=== PATIENT | male | born 1940 | race Caucasian/White ===

== ENCOUNTER 2018-04-17 14:19 | Outpatient (CLI) | payer MEDICARE, OTHER ==
--- NOTE | 2018-04-17 15:10 | XRAY Report ---
Reason: PNEUMONIA Procedure Date: 04/17/2018 Accession Number: [id number] / [id number] Procedure: XR - Chest 2 View X-Ray CPT Code: 94193 FULL RESULT: EXAM: CHEST RADIOGRAPHY EXAM DATE: 04/17/2018 02:54 PM. CLINICAL HISTORY: Pneumonia. COMPARISON: None. TECHNIQUE: 2 views. FINDINGS: Lungs/Pleura: Nonspecific subsegmental opacity in the posterior left lung base. No effusion or extraventilatory air. Remaining lungs are clear. Mediastinum: Heart and mediastinal contours are unremarkable. Other: None. IMPRESSION: Subsegmental left basilar opacity favors atelectasis. RADIA
== END 2018-04-17 14:20 | disposition home or self-care (01) ==
LOC: DI 14:19
PROVIDERS: ATTEND Specialist
DX: J18.9 Pneumonia, unspecified organism (principal)
CPT/HCPCS: 71046

== ENCOUNTER 2018-09-12 14:46 | Outpatient (CLI) | payer MEDICARE, OTHER | END 2018-09-12 14:47 | disposition short-term general hospital (02) | LOC: EMS 14:46 | PROVIDERS: ATTEND Surgery | DX: R07.89 Other chest pain (principal) | CPT/HCPCS: A0425; A0427 ==

== ENCOUNTER 2020-06-10 10:29 | Outpatient (CLI) | payer MEDICARE, OTHER ==
[2020-06-10 11:32] VITALS: BP 144/76
--- NOTE | 2020-06-10 11:32 | SLEEP CARE CONSULTATION ---
Information from patient questionnaire entered by Cristine Hess. I have reviewed and concur with the information entered by Cristine Hess. This document represents the service I personally performed and the decisions made by me, Nasreen Barrera ARNP. History of Present Illness Service Date and Time: 06/10/2020 1029 Reason for Visit: New patient, Previously diagnosed sleep apnea (severe - AHI - 53.4), sleep apnea on CPAP therapy (using [place]), Re-establish care (last seen 2006) Chief Complaint: reports: Fatigue, Frequent awakenings at night Date of Onset: 10 years Usual bedtime: 11 pm Time it takes to fall asleep: 20-30 minutes Snores at night: Yes Observed to quit breathing while asleep: Yes Number of times waking at night: 3-4 Reasons for waking at night: reports: Bathroom, Other (unknown reason) Toss, Turn, or Twitch while sleeping: Yes Recalls having dreams: Yes Feels refreshed in the morning: No Morning headache: No Sleepy or fatigued during the day: Yes Ever fallen asleep while driving: No Takes day naps: Yes Dreams during day naps: Yes Prior sleep studies: Yes Year and Where: [address] 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 - Parasomnia Symptoms Ever been unable to move upon waking from sleep: No Walks in sleep: No Talks in sleep: No Ever acted out dreams in sleep: Yes Ever felt weak in the knees when startled or emotional: Yes Bothered by creepy, crawly, restless sensations in legs: Yes Problems with memory or concentration: Yes CPAP Compliance Data - Data Reviewed with Patient Average duration of nightly device use: 6 hr 26 min Compliance rate %: 81 (180 days) Current pressure setting (cmH2O): 8-12 Average residual AHI: 1.6 Compliance data discussion: He gets his supplies from [employer] in [place]. He is getting supplies as needed. He is using an over the nose mask cushion. He last changed the mask 2 weeks ago. He does have a back up mask if needed. Subjective Patient concerns: reports: nasal congestion (usually when taking mask off in the morning), dry mouth, nose, throat (occasionally). denies: aerophagia, mask discomfort, air blowing in eyes, mask leak noise, condensation in mask/hose, epistaxis, other Observed to snore while using device: No Current pressure setting perceived as: comfortable (sometimes feels not enough) On therapy, patient: reports: sleeping better, awakening more refreshed, being more awake and alert during the day, more rested overall. 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 Patient is and lives in [place]. Have you smoked in the past 12 months: No Quit date: 1972 Alcohol use: No Caffeine use: Yes Caffeine amount and frequency: 2-3 cans of soda daily Family History Family history of sleep disordered breathing: No Allergies and Home Medications Drug allergies reviewed: Yes (NKDA) Home medication list reviewed: Yes Allergy and home medication list: Dofetilide Xarelto Lisinopril Aspirin Finasteride Tamsulosin Review of Systems Cardiovascular: reports: irregular heart rate or pulse Respiratory: reports: shortness of breath Urinary: reports: incontinence, frequency, urgency Neurological: reports: gait or balance problems Endocrine: reports: sluggishness, excessive thirst, increased urination, unexplained weakness Musculoskeletal: reports: joint pain, neck pain, back pain Physical Exam Blood Pressure: 144/76 Cuff size: wrist Heart Rate: 59 O2 Saturation: 93 Height: 5 ft 10 in Weight: 249 lb Body Mass Index: 35.7 BMI Classification: Obese Impression and Plan 1. Obstructive Sleep Apnea-Hypopnea Syndrome, severe, with good treatment compliance and good apnea control. On CPAP therapy, the patient has better sleep quality and is more rested overall. He has significant improvement of his apneas and is satisfied with his treatment. He states he uses the machine till about 5 AM and then will go out and sit on his couch and fall asleep for a couple more hours. He is still feeling some daytime tiredness. I reviewed with patient that can be a difference between meeting compliance and optimal use of CPAP. Optimal use of CPAP is use of CPAP with all sleep to obtain maximum benefit of treatment. Patient is encouraged to use CPAP with all sleep, he may go back or stay in bed rather than getting up and sitting on couch in the morning. He voiced understanding. He states sometimes he feels like the pressure is a little low. I will change his pressure to 10-12 cmH2O to help reduce incidences of air hunger. He was advised to let me know if the pressure change is uncomfortable so it can be adjusted. He voiced understanding. Patient's apnea severity and rationale for treatment to reduce apnea, improve sleep quality and reduce cardiovascular and cerebrovascular events was reviewed. I also reviewed the benefit of consistent device use of CPAP for hypertension, and diabetes. * Change auto CPAP pressure to 10-12 cmH2O * Notify me if snoring with mask or feeling that the pressure is too much or too little * Attempt to lose weight * Call this office if any problems using CPAP * Return for follow up in 1 year, or sooner if concerns arise Counseling Topics: Spare mask, Weight loss health impact Visit Type: In Office Time Spent with Patient (minutes): 32 Provider Statement: I spent 100% of the Face to Face Visit with the patient with greater than 50% spent counseling the patient and coordination of care.
== END 2020-06-10 10:30 | disposition home or self-care (01) ==
LOC: SC 10:29
PROVIDERS: ATTEND Nurse Practitioner Family
DX: G47.33 Obstructive sleep apnea (adult) (pediatric) (principal); Z87.891 Personal history of nicotine dependence; E66.9 Obesity, unspecified; Z68.35 Body mass index [BMI] 35.0-35.9, adult
CPT/HCPCS: 99203; G0463; 99212

== ENCOUNTER 2020-08-28 14:05 | Outpatient (CLI) | payer MEDICARE, OTHER | END 2020-08-28 23:59 | disposition home or self-care (01) | LOC: LAB.N 14:05 | PROVIDERS: ATTEND Family Medicine | DX: U07.1 COVID-19 (principal) ==

== ENCOUNTER 2020-08-29 19:56 | Outpatient (CLI) | payer MEDICARE, OTHER | END 2020-08-29 19:57 | disposition short-term general hospital (02) | LOC: EMS 19:56 | DX: R42 Dizziness and giddiness (principal); R53.1 Weakness | CPT/HCPCS: A0425; A0429 ==

== ENCOUNTER 2020-09-03 10:25 | Outpatient (CLI) | payer MEDICARE, OTHER | END 2020-09-03 10:26 | disposition critical access hospital (66) | LOC: EMS 10:25 | DX: R53.1 Weakness (principal); R05 Cough; R06.02 Shortness of breath | CPT/HCPCS: A0425; A0427 ==

== ENCOUNTER 2020-09-03 10:50 | Emergency (ER) | payer MEDICARE, OTHER ==
[2020-09-03] MEDS ORDERED: SODIUM CHLORIDE 0.9% 1,000 ML IV STA (11:04)
--- NOTE | 2020-09-03 11:04 | ED Physician Documentation ---
History of Present Illness - Stated complaint Stated Complaint: SOA/C+ - History obtained from History obtained from: Patient, EMS - Additonal information Additional information: Though states that hisIs emergency department chief complaint of Covid positive and generalized weakness. He states that he has not had any fevers and has had a mild cough and mild shortness of breath but mainly, he is just been generally weak. He states that it has been hard for him to get up out of bed because he has been so weak. He lives at home with his and [id number] and his has been taking care of him. Patient is [id number] just collapsed this morning and so his is also trying to deal with her illness. Patient states he was vaccinated back in April with the [employer] vaccine. He is not sure where he was exposed to Covid. No other complaints at this time. He states he has been drinking lots of water at home. Review of Systems Ten Systems: 10 systems reviewed and negative Constitutional: reports: Reviewed and negative Eyes: reports: Reviewed and negative Ears: reports: Reviewed and negative Nose: reports: Reviewed and negative Throat: reports: Reviewed and negative Cardiac: reports: Reviewed and negative Respiratory: reports: Reviewed and negative GI: reports: Reviewed and negative : reports: Reviewed and negative Skin: reports: Reviewed and negative Musculoskeletal: reports: Reviewed and negative Neurologic: reports: Generalized weakness Psychiatric: reports: Reviewed and negative Endocrine: reports: Reviewed and negative Immunocompromised: reports: Reviewed and negative PD PAST MEDICAL HISTORY - Present Medications Home Medications: Ambulatory Orders Medication Instructions Recorded Confirmed Aspirin EC [Ecotrin] 81 mg PO DAILY PM 09/03/20 09/03/20 Dofetilide [Tikosyn] 125 mcg PO DAILY 09/03/20 09/03/20 Donepezil [Aricept] 5 mg PO DAILY 09/03/20 09/03/20 Finasteride [Proscar] 5 mg PO DAILY 09/03/20 09/03/20 Lisinopril [Zestril] 10 mg PO DAILY 09/03/20 09/03/20 Rivaroxaban [Xarelto] 20 mg PO DAILY 09/03/20 09/03/20 Tamsulosin [Flomax] 0.4 mg PO DAILY 09/03/20 09/03/20 traMADol [Ultram] 50 mg PO TID PRN 09/03/20 09/03/20 - Allergies Allergies/Adverse Reactions: Allergies Allergy/AdvReac Type Severity Reaction Status Date / Time No Known Drug Allergies Allergy Verified 09/03/20 11:07 PD ED PE NORMAL - Vitals Vital signs reviewed: Yes - General General: Alert and oriented X 3, No acute distress - HEENT HEENT: Atraumatic, PERRL, EOMI, Moist mucous membranes - Neck Neck: Supple, no meningeal sign - Cardiac Cardiac: No murmur, Strong equal pulses, Other (tachycardiac rate regular rhythm no murmur) - Respiratory Respiratory: No respiratory distress, Clear bilaterally - Abdomen Abdomen: Soft, Non tender, Non distended - Derm Derm: Normal color, Warm and dry, No rash - Extremities Extremities: No deformity, No edema, No calf tenderness / cord - Neuro Neuro: Alert and oriented X 3, tourist home keeper 2-12 intact, No motor deficit, No sensory deficit, Normal speech - Psych Psych: Normal mood, Normal affect Results - Vitals Vitals: Vital Signs - 24 hr 09/03/20 09/03/20 09/03/20 11:04 13:07 14:37 Temperature 36.9 C 36.5 C 36.6 C Heart Rate 124 H 110 H 105 H Respiratory 28 H 26 H 24 Rate Blood Pressure 116/71 142/86 H 145/78 H O2 Saturation 97 93 98 Oxygen O2 Source Room air - EKG (time done) 1129 Rate: Rate (enter#) (114) Rhythm: Atrial fibrillation [place]: Normal Intervals: RBBB QRS: Normal Ischemia: Normal ST segments, T wave inversion Compare to prior EKG: Old EKG unavailable Computer interpretation: Agree with computer - Labs Labs: Laboratory Tests 09/03/20 09/03/20 09/03/20 11:50 11:50 12:39 WBC 5.0 RBC 5.15 Hgb 15.7 Hct 47.7 MCV 92.6 MCH 30.5 MCHC 32.9 RDW 13.9 Plt Count 84 L MPV 13.2 H Neut # (Auto) 3.5 Lymph # (Auto) 0.9 L [place] # (Auto) 0.6 Eos # (Auto) 0.0 Baso # (Auto) 0.0 Absolute Nucleated RBC 0.00 Nucleated RBC % 0.0 Sodium 135 Potassium 4.1 Chloride 103 Carbon Dioxide 20 L Anion Gap 12.0 BUN 23 H Creatinine 1.3 H Estimated GFR (MDRD) 53 L Glucose 122 H Lactic Acid 1.1 Calcium 8.1 L Total Bilirubin 1.5 H AST 37 ALT 27 Alkaline Phosphatase 41 L Total Protein 6.1 L Albumin 3.6 Globulin 2.5 Albumin/Globulin Ratio 1.4 Lipase 38 - Rads (name of study) cxr Radiology: Final report received, EMP read indepedently, See rad report (neg) PD MEDICAL DECISION MAKING - ED course Complexity details: reviewed results, re-evaluated patient, considered differential, d/w patient ED course: The patient did have a little trouble sitting himself up and holding himself up for the respiratory exam, and was somewhat tachycardic, but otherwise, looked fairly well. He was worked up with labs, chest x-ray, and treated symptomatically with IV fluids. Afebrile here in the emergency department. Despite his age and Covid positive status, patient actually looked fairly good in the emergency department. He was stable throughout his stay and had unremarkable labs and chest x-ray. His EKG showed atrial fibrillation with mild tachycardia. The patient was given a liter of 0.9 normal saline. We had him sit up and then come to a standing position and he was actually able to maintain a standing position with minimal support. He was also able to walk sideways and Transfer himself. I did discuss with the patient that I do not feel he meets criteria for admission and that there is no option to go to a facility even temporarily or to have home health assistance in his Covid positive state. The patient has been experiencing generalized weakness at about the same level for the last 1 to 2 weeks and he will have to continue to ride this out at home. I have consulted social work to give the patient and family some options for assistance with things like bedside commode, which may make his convalescence at home easier. We discussed the usual indications for return. Patient is transferred home by ambulance. Departure - Departure Disposition: 01 Home, Self Care Clinical Impression: Muscle weakness, COVID Condition: Stable Instructions: ED Weakness [facility], COVID-19 [facility] Comments: All of your studies look quite good. Your chest x-ray shows no evidence of pneumonia or a virus-related inflammatory process. Your EKG shows that you are in atrial fibrillation as usual, But does not show any cardiac strain related to the Covid or anything else. You have been hydrated with IV fluids in the emergency department. You are able to stand with minimal assistance and transfer a few steps at a time at very least. At this point in time, unfortunately, you do not meet criteria for admission to the hospital, As this is an illness which will take some time to get over and will not be helped by any intervention within the hospital. Additionally, because you are Covid positive, you are not able to be sent to a facility, even temporarily. Home health is an option for later, but not until your acute illness has passed. At this point in time, you will have to continue to rest at home with assistance as needed. The social work job titles has left a message on your cell phone with some resources for home supplies which you may need, including a bedside commode to help minimize the amount of walking around the house she have to do. Discharge Date/Time: 09/03/20 14:41
[2020-09-03 12:07] LABS: BASOPHILS % (AUTO) 0.2 %; HCT - HEMATOCRIT 47.7 % (42.0-52.0); HGB - HEMOGLOBIN 15.7 g/dL (14.0-18.0); LYMPHOCYTES # (AUTO) 0.9 10^3/uL (1.5-3.5); LYMPHOCYTES % (AUTO) 17.2 %; MEAN CORPUSCULAR HEMOGLOBIN 30.5 pg (27.0-31.0); MEAN CORPUSCULAR HGB CONC 32.9 g/dL (32.0-36.0); MEAN CORPUSCULAR VOLUME 92.6 fL (80.0-94.0); MEAN PLATELET VOLUME 13.2 fL (7.4-11.4); MONOCYTES # (AUTO) 0.6 10^3/uL (0.0-1.0); MONOCYTES % (AUTO) 11.6 %; NEUTROPHILS # (AUTO) 3.5 10^3/uL (1.5-6.6); NEUTROPHILS % (AUTO) 70.8 %; PLT - PLATELET COUNT 84 10^3/uL (130-450); RED BLOOD COUNT 5.15 10^6/uL (4.70-6.10); RED CELL DISTRIBUTION WIDTH 13.9 % (12.0-15.0)
[2020-09-03 12:15] LABS: ALBUMIN 3.6 g/dL (3.2-5.5); ALBUMIN/GLOBULIN RATIO 1.4 (1.0-2.2); BILIRUBIN,TOTAL 1.5 mg/dL (0.2-1.0); CALCIUM 8.1 mg/dL (8.5-10.3); CREATININE 1.3 mg/dL (0.6-1.2); POTASSIUM 4.1 mmol/L (3.5-5.0); TOTAL PROTEIN 6.1 g/dL (6.7-8.2)
--- NOTE | 2020-09-03 13:42 | XRAY Report ---
PROCEDURE: Chest 1 View X-Ray INDICATIONS: chest pain TECHNIQUE: One view of the chest was acquired. COMPARISON: Chest x-ray 2 views, 04/17/2018. FINDINGS: Surgical changes and devices: None. Lungs and pleura: Mild reticular infiltrates in left lung. No pleural effusions or pneumothorax. Mediastinum: Mediastinal contours appear normal. Heart size is normal. Bones and chest wall: No suspicious bony lesions. Overlying soft tissues appear unremarkable. IMPRESSION: Mild reticular infiltrates in left lung. Reviewed by: Shawna Guerrero MD on 09/03/2020 12:41 PM AKDT Approved by: Shawna Guerrero MD on 09/03/2020 12:41 PM AKDT Station ID: [id number]
[2020-09-03 14:39] VITALS: BP 145/78
== END 2020-09-03 14:41 | disposition home or self-care (01) ==
LOC: ED 10:50
DX: U07.1 COVID-19 (principal); M62.81 Muscle weakness (generalized); I48.91 Unspecified atrial fibrillation; R00.0 Tachycardia, unspecified; Z79.01 Long term (current) use of anticoagulants
CPT/HCPCS: 36415; 80053; 83605; 83690; 85025; 93005; 99284

== ENCOUNTER 2020-09-03 14:40 | Outpatient (CLI) | payer MEDICARE, OTHER | END 2020-09-03 14:41 | disposition home or self-care (01) | LOC: EMS 14:40 | PROVIDERS: ATTEND Emergency Medicine | DX: U07.1 COVID-19 (principal); R53.1 Weakness; R41.0 Disorientation, unspecified; Z74.01 Bed confinement status | CPT/HCPCS: A0425; A0428 ==

== ENCOUNTER 2020-09-03 22:01 | Outpatient (CLI) | payer MEDICARE, OTHER | END 2020-09-03 22:02 | disposition EMS.NT | LOC: EMS 22:01 | DX: Z03.89 Encounter for observation for other suspected diseases and conditions ruled out (principal) ==

== ENCOUNTER 2020-09-05 14:31 | Outpatient (CLI) | payer MEDICARE, OTHER | END 2020-09-05 14:32 | disposition critical access hospital (66) | LOC: EMS 14:31 | DX: R53.1 Weakness (principal); R42 Dizziness and giddiness; R06.00 Dyspnea, unspecified | CPT/HCPCS: A0425; A0427 ==

== ENCOUNTER 2020-09-05 14:50 | Inpatient (IN) | payer MEDICARE, OTHER ==
[2020-09-05 15:38] LABS: RED CELL DISTRIBUTION WIDTH 13.5 % (12.0-15.0)
[2020-09-05 15:43] LABS: EOSINOPHILS % (AUTO) 2.1 %; HCT - HEMATOCRIT 44.9 % (42.0-52.0); HGB - HEMOGLOBIN 15.4 g/dL (14.0-18.0); LYMPHOCYTES % (AUTO) 10.3 %; MEAN CORPUSCULAR HEMOGLOBIN 30.6 pg (27.0-31.0); MEAN CORPUSCULAR HGB CONC 34.3 g/dL (32.0-36.0); MEAN CORPUSCULAR VOLUME 89.3 fL (80.0-94.0); MEAN PLATELET VOLUME 13.3 fL (7.4-11.4); MONOCYTES % (AUTO) 8.7 %; NEUTROPHILS % (AUTO) 78.6 %; PLT - PLATELET COUNT 94 10^3/uL (130-450); RED BLOOD COUNT 5.03 10^6/uL (4.70-6.10); WHITE BLOOD COUNT 6.3 x10^3/uL (4.8-10.8)
[2020-09-05 15:44] LABS: VBG BASE EXCESS -2.3 mmol/L (-2 - +2); VBG HCO3 23.1 mmol/L (23-28); VBG OXYGEN SATURATION 48.4 % (60-80); VBG PCO2 41.9 mmHg (41-51); VBG PH 7.359 (7.31-7.41); VBG PO2 25.2 mmHg (25-47); VBG TOTAL CO2 24.4 mmol/L (24-29)
[2020-09-05 15:47] LABS: ABNORMAL LYMPHS % (MANUAL) 0 %
[2020-09-05 15:49] LABS: ALBUMIN 3.6 g/dL (3.2-5.5); ALBUMIN/GLOBULIN RATIO 1.3 (1.0-2.2); BILIRUBIN,TOTAL 1.3 mg/dL (0.2-1.0); CALCIUM 8.4 mg/dL (8.5-10.3); CREATININE 1.4 mg/dL (0.6-1.2); CRP HIGH SENSITIVITY 92.8 mg/L; POTASSIUM 4.3 mmol/L (3.5-5.0); TOTAL PROTEIN 6.4 g/dL (6.7-8.2)
[2020-09-05] MEDS ORDERED: SODIUM CHLORIDE 0.9% 1,000 ML IV STA (15:55)
[2020-09-05] MEDS ORDERED: ACETAMINOPHEN 325 MG TABLET PO STA (15:55)
--- NOTE | 2020-09-05 15:56 | XRAY Report ---
PROCEDURE: Chest 1 View X-Ray INDICATIONS: Chest Pain TECHNIQUE: One view of the chest was acquired. COMPARISON: 09/03/2020 chest x-ray FINDINGS: Surgical changes and devices: None. Lungs and pleura: No pleural effusions or pneumothorax. Mild patchy bilateral perihilar opacities. Mediastinum: Mediastinal contours appear normal. Heart size is normal. Bones and chest wall: No suspicious bony lesions. Overlying soft tissues appear unremarkable. IMPRESSION: Mild atypical pneumonia. Reviewed by: Amanda Wolff MD on 09/05/2020 2:55 PM AKDT Approved by: Amanda Wolff MD on 09/05/2020 2:55 PM AKDT Station ID: [id number]
--- NOTE | 2020-09-05 15:56 | ED Physician Documentation ---
History of Present Illness - Stated complaint Stated Complaint: C+, WEAKNESS - Chief complaint Chief Complaint: General - History obtained from History obtained from: Patient, EMS - Additonal information Additional information: 79-year-old man with past medical history of A. damien on Eliquis recent diagnosis of COVID-19, presents with worsening weakness and shortness of breath. Patient was found to be in the 80s on room air when EMS arrived and improved to the 90s on 4 L of oxygen. AO x2 (person and place, not time). denies chest pain. +nonproductive cough Review of Systems Ten Systems: 10 systems reviewed and negative Constitutional: reports: Fever, Chills, Myalgias Respiratory: reports: Dyspnea, Cough GI: reports: Nausea Neurologic: reports: Generalized weakness PD PAST MEDICAL HISTORY - Present Medications Home Medications: Ambulatory Orders Medication Instructions Recorded Confirmed Aspirin EC [Ecotrin] 81 mg PO DAILY PM 09/03/20 09/03/20 Dofetilide [Tikosyn] 125 mcg PO DAILY 09/03/20 09/03/20 Donepezil [Aricept] 5 mg PO DAILY 09/03/20 09/03/20 Finasteride [Proscar] 5 mg PO DAILY 09/03/20 09/03/20 Lisinopril [Zestril] 10 mg PO DAILY 09/03/20 09/03/20 Rivaroxaban [Xarelto] 20 mg PO DAILY 09/03/20 09/03/20 Tamsulosin [Flomax] 0.4 mg PO DAILY 09/03/20 09/03/20 traMADol [Ultram] 50 mg PO TID PRN 09/03/20 09/03/20 - Allergies Allergies/Adverse Reactions: Allergies Allergy/AdvReac Type Severity Reaction Status Date / Time No Known Drug Allergies Allergy Verified 09/05/20 15:11 PD ED PE NORMAL - Vitals Vital signs reviewed: Yes - General General: Other (AOX2, uncomfortable appearing elderly gentleman) - HEENT HEENT: Atraumatic, PERRL, EOMI - Neck Neck: Supple, no meningeal sign - Cardiac Cardiac: Other (tachycardic rate, irregular rhythm) - Respiratory Respiratory: Other (BL coarse breath sounds) - Abdomen Abdomen: Non tender, Non distended - Derm Derm: Normal color, Warm and dry - Extremities Extremities: No deformity - Neuro Neuro: No motor deficit, No sensory deficit - Psych Psych: Normal mood, Normal affect Results - Vitals Vitals: Vital Signs - 24 hr 09/05/20 09/05/20 09/05/20 15:04 15:30 16:00 Temperature 36.6 C Heart Rate 134 H 145 H 150 H Respiratory 28 H 29 H 33 H Rate Blood Pressure 126/78 140/64 H 133/77 H O2 Saturation 85 L 97 97 09/05/20 16:30 Temperature Heart Rate 158 H Respiratory 27 H Rate Blood Pressure 138/101 H O2 Saturation 100 Oxygen O2 Source Nasal cannula - EKG (time done) 1529 Rate: Rate (enter#) (138) Rhythm: Atrial fibrillation Intervals: RBBB - Labs Labs: Laboratory Tests 09/05/20 09/05/20 09/05/20 15:21 15:21 15:21 WBC 6.3 RBC 5.03 Hgb 15.4 Hct 44.9 MCV 89.3 MCH 30.6 MCHC 34.3 RDW 13.5 Plt Count 94 L MPV 13.3 H Neut # (Auto) Not Reportable Lymph # (Auto) Not Reportable [place] # (Auto) Not Reportable Eos # (Auto) Not Reportable Baso # (Auto) Not Reportable Absolute Nucleated RBC Not Reportable Total Counted 100 Band Neuts % (Manual) 6 Reactive Lymphs % (Man) 4 Abnorm Lymph % (Manual) 0 Nucleated RBC % Not Reportable Neutrophils # (Manual) 4.9 Lymphocytes # (Manual) 0.6 L Monocytes # (Manual) 0.8 Eosinophils # (Manual) 0.0 Basophils # (Manual) 0.0 Differential Comment MANUAL DIFFERENTIAL WBC Morphology NORMAL APPEARANCE Platelet Estimate DECREASED (<130,000) Platelet Morphology 1+ GIANT PLATELETS RBC Morph Micro Appear NORMAL APPEARANCE ESR D-Dimer 217.3 VBG pH VBG pCO2 VBG pO2 VBG HCO3 VBG Total CO2 VBG O2 Saturation VBG Base Excess Sodium 138 Potassium 4.3 Chloride 103 Carbon Dioxide 24 Anion Gap 11.0 BUN 24 H Creatinine 1.4 H Estimated GFR (MDRD) 49 L Glucose 125 H Calcium 8.4 L Total Bilirubin 1.3 H AST 58 H ALT 32 Alkaline Phosphatase 36 L Troponin I High Sens C-React Prot High Sens 92.8 Total Protein 6.4 L Albumin 3.6 Globulin 2.8 Albumin/Globulin Ratio 1.3 Lipase 56 H 09/05/20 09/05/20 09/05/20 15:21 15:21 15:21 WBC RBC Hgb Hct MCV MCH MCHC RDW Plt Count MPV Neut # (Auto) Lymph # (Auto) [place] # (Auto) Eos # (Auto) Baso # (Auto) Absolute Nucleated RBC Total Counted Band Neuts % (Manual) Reactive Lymphs % (Man) Abnorm Lymph % (Manual) Nucleated RBC % Neutrophils # (Manual) Lymphocytes # (Manual) Monocytes # (Manual) Eosinophils # (Manual) Basophils # (Manual) Differential Comment WBC Morphology Platelet Estimate Platelet Morphology RBC Morph Micro Appear ESR 18 D-Dimer VBG pH 7.359 VBG pCO2 41.9 VBG pO2 25.2 VBG HCO3 23.1 VBG Total CO2 24.4 VBG O2 Saturation 48.4 L VBG Base Excess -2.3 L Sodium Potassium Chloride Carbon Dioxide Anion Gap BUN Creatinine Estimated GFR (MDRD) Glucose Calcium Total Bilirubin AST ALT Alkaline Phosphatase Troponin I High Sens 22.8 H* C-React Prot High Sens Total Protein Albumin Globulin Albumin/Globulin Ratio Lipase PD MEDICAL DECISION MAKING - ED course ED course: 79yM with moderate to severe covid-19 symptoms. plan to admit for oxygen/symptom management. d/w Dr. Perez. confirmed meds with patient's . Departure - Departure Disposition: 66 [facility] DC/Xfer Clinical Impression: COVID-19, Elevated troponin, Weakness, Shortness of breath
[2020-09-05 16:16] LABS: BAND NEUTROPHILS % (MANUAL) 6 %; LYMPHOCYTES # (MANUAL) 0.6 10^3/uL (1.5-3.5); LYMPHOCYTES % (MANUAL) 5 %; MONOCYTES # (MANUAL) 0.8 10^3/uL (0.0-1.0); NEUTROPHILS # (MANUAL) 4.9 10^3/uL (1.5-6.6); REACTIVE LYMPHS % (MANUAL) 4 %
[2020-09-05 16:17] LABS: DIFFERENTIAL COMMENT MANUAL DIFFERENTIAL; PLATELET ESTIMATE, MANUAL DECREASED (<130,000) (NORMAL); PLATELET MORPHOLOGY 1+ GIANT PLATELETS (NORMAL); RBC MORPHOLOGY (MULTIPLE) NORMAL APPEARANCE (NORMAL); WBC MORPHOLOGY (MULTIPLE) NORMAL APPEARANCE (NORMAL)
[2020-09-05] MEDS ORDERED: ONDANSETRON 4 MG/2 ML VIAL IVP PRN (16:25)
[2020-09-05] MEDS ORDERED: HYDROcod/ACETAM 5/325 MG TABLET PO PRN (16:25)
[2020-09-05] MEDS ORDERED: METOPROLOL 5 MG/5 ML VIAL IVP STA (16:40)
--- NOTE | 2020-09-05 16:41 | HISTORY & PHYSICAL EXAMINATION ---
Chief Complaint - Chief Complaint Chief Complaint: dyspnea, hypoxia, weakness History of Present Illness - Admitted From Admitted From:: [facility] ED - History Obtained From Records Reviewed: yes History obtained from: patient's Exam Limitations: mild dementia - History of Present Illness HPI Comment/Other: Patient is a 79-year-old male with medical history significant for atrial fibrillation on Tikosyn and Xarelto, BPH, mild dementia, chronic back pain and hypertension who was brought to the ED with weakness, hypoxia and dyspnea. He was diagnosed with Covid 1 week ago. He had the [employer] Covid va ccine in April 2020. He has been getting progressively weak over this past week and dyspneic. 2 days ago his had called for a lift assist. EMS picked him up from the floor where he had laid and could not get up due to the weakness and placed him in a chair. He stayed in the chair for more than 24 hours due to the weakness. He was incontinent of urine and stool in that time. His is very weak because she is also positive for Covid and was unable to help him today so she again called EMS. He was noted to have an oxygen saturation of 85% on room air. In the ED his oxygen saturation was again noted to be 85% on room air. With 4 L of oxygen via nasal canula, his oxygen saturation improved to the low 90s. He was also noted to be in rapid ventricular rhythm with heart rate as high as 150. He was afebrile and had normal white blood cell count. He was slightly dehydrated with a creatinine of 1.4. At bedside he was resting comfortably. He has significant crackles bilaterally. He denied chest pain, abdominal pain, nausea, vomiting, fever or chills. He is being admitted for further management. 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 Social History Notes: He does not use tobacco products, alcohol or recreational products. He lives with his . He has been using a cane for the past week. - POLST POLST Status: DNR Meds/Allgy - Home Medications Home Medications: Ambulatory Orders Medication Instructions Recorded Confirmed Aspirin EC [Ecotrin] 81 mg PO DAILY PM 09/03/20 09/05/20 Dofetilide [Tikosyn] 125 mcg PO BID 09/03/20 09/05/20 Donepezil [Aricept] 5 mg PO DAILY 09/03/20 09/05/20 Finasteride [Proscar] 5 mg PO DAILY 09/03/20 09/05/20 Lisinopril [Zestril] 10 mg PO DAILY 09/03/20 09/05/20 Rivaroxaban [Xarelto] 20 mg PO DAILY 09/03/20 09/05/20 Tamsulosin [Flomax] 0.4 mg PO DAILY 09/03/20 09/05/20 traMADol [Ultram] 50 mg PO TID PRN 09/03/20 09/05/20 - Allergies Allergies/Adverse Reactions: Allergies Allergy/AdvReac Type Severity Reaction Status Date / Time No Known Drug Allergies Allergy Verified 09/05/20 15:11 Review of Systems - Constitutional Constitutional: reports: Fatigue, Weakness. denies: Fever, Chills - Eyes Eyes: denies: Pain - Ears, Nose & Throat Ears, Nose & Throat: denies: Ear pain - Cardiovascular Cariovascular: reports: Irregular heart rate, Exertional dyspnea. denies: Chest pain, Edema, Lightheadedness - Respiratory Respiratory: reports: Wheezing, SOB at rest, SOB with exertion - Gastrointestinal Gastrointestinal: reports: Diarrhea. denies: Abdominal pain, Abdominal di stention, Nausea, Vomiting - Genitourinary Genitourinary: denies: Dysuria, Frequency, Urgency - Musculoskeletal Musculoskeletal: reports: Back pain. denies: Muscle pain - Integumentary Integumentary: denies: Rash, Pruritis, Lesions - Neurological Neurological: reports: General weakness. denies: Headache - Psychiatric Psychiatric: denies: Depression, Anxiety - Endocrine Endocrine: denies: Polyuria, Polydypsia - Hematologic/Lymphatic Hematologic/Lymphatic: denies: Anemia, Bruising Prior Level of Functionality: Lives with his . He is normally independent of activities of daily living but since he became sick he has been using a cane to get around for the past week. Exam - Vital Signs Vital Signs: Vital Signs x48h Temp Pulse Resp BP Pulse Ox 09/05/20 16:30 158 H 27 H 138/101 H 100 09/05/20 16:00 150 H 33 H 133/77 H 97 09/05/20 15:30 145 H 29 H 140/64 H 97 09/05/20 15:04 36.6 C 134 H 28 H 126/78 85 L - Physical Exam General Appearance: positive: Alert, Mild distress Eyes Bilateral: positive: PERRL, EOMI ENT: positive: Dry mucous membranes Neck: positive: No JVD, Trachea midline Respiratory: positive: Chest non-tender, Rales (mild crackles) Cardiovascular: positive: No murmur, Irregularly irregular, Tachycardia Abdomen: positive: Non-tender, No organomegaly, Nml bowel sounds, No distention. negative: Guarding, Rebound Back: positive: Nml inspection Skin: positive: Color nml, No rash, Warm, Dry Extremities: positive: Non-tender, Nml appearance, No pedal edema Neurologic/Psychiatric: positive: Oriented x3, Mood/affect nml Conclusion/Plan - Problem List (1) COVID-19 Conclusion/Plan: Patient was started on remdesivir. Today is day 1 of 5. Decadron 6 mg IV daily ordered. Day 1. We will hold off on any antibiotics since the patient is afebrile and his white count is normal. Supplemental oxygen via nasal cannula for an oxygen saturation greater than 92%. Albuterol every 4 hours as needed. (2) Acute respiratory failure with hypoxia Conclusion/Plan: Due to COVID-19 infection. Patient was started on remdesivir. Today is day 1 of 5. Decadron 6 mg IV daily ordered. Day 1. We will hold off on any antibiotics since the patient is afebrile and his white count is normal. Supplemental oxygen via nasal cannula for an oxygen saturation greater than 92%. Albuterol every 4 hours as needed. (3) Atrial fibrillation with RVR Conclusion/Plan: Patient's heart rate was as high as 150 in the ED. Tikosyn 125mg twice daily. He did not take his evening dose today. Will resume in the morning. Patient was given Metroprolol tartrate 5 mg IV x1 in the ED. Diltiazem 30 mg every 6 hours scheduled ordered. If needed will order a diltiazem drip. We will continue patient's Xarelto in the morning. If patient is in the hospital by 09/07/20, will obtain a 2D echocardiogram. (4) GREG (acute kidney injury) Conclusion/Plan: Likely due to diarrhea Creatinine was 1.4. Patient was given a liter of normal saline in the ED. We will hold off on further IV hydration. We will monitor renal function (5) Dementia Conclusion/Plan: On Aricept 5 mg p.o. daily. (6) BPH (benign prostatic hyperplasia) Conclusion/Plan: On tamsulosin and finasteride. (7) Elevated troponin Conclusion/Plan: Likely demand ischemia from tachycardia related to atrial fibrillation with rapid ventricular rhythm. Initial troponin was 22.8. Will trend times tomorrow. - Lab Results Fish Bones: 09/05/20 15:21 09/05/20 15:21
[2020-09-05] MEDS ORDERED: REMDESIVIR 100MG VIAL 200 MG in SODIUM CHLORIDE 0.9% 250 ML IV SCH (17:00)
[2020-09-05] MEDS ORDERED: ALBUTEROL 1 PUFF INH PRN (17:12)
[2020-09-05] MEDS: diltiaZEM 30 MG TABLET PO SCH ×2 (17:51→23:36)
[2020-09-05] MEDS: SODIUM CHLORIDE FLUSH 0.9% 10 ML SYRINGE IVP SCH ×2 (17:52→23:40)
[2020-09-06] MEDS: METOPROLOL 5 MG/5 ML VIAL IVP SCH ×5 (01:46→22:44)
[2020-09-06] MEDS: SODIUM CHLORIDE FLUSH 0.9% 10 ML SYRINGE IVP PRN ×2 (01:47→20:10)
[2020-09-06] MEDS: ACETAMINOPHEN 325 MG TABLET PO PRN ×2 (01:57→20:10)
[2020-09-06] MEDS: diltiaZEM 30 MG TABLET PO SCH ×4 (06:27→23:52)
[2020-09-06] MEDS: PANTOPRAZOLE 40 MG TABLET PO SCH (06:27)
[2020-09-06 06:46] LABS: BASOPHILS % (AUTO) 0.1 %; EOSINOPHILS # (AUTO) 0.1 10^3/uL (0.0-0.7); EOSINOPHILS % (AUTO) 1.7 %; HCT - HEMATOCRIT 47.5 % (42.0-52.0); HGB - HEMOGLOBIN 16.4 g/dL (14.0-18.0); LYMPHOCYTES # (AUTO) 0.7 10^3/uL (1.5-3.5); LYMPHOCYTES % (AUTO) 9.1 %; MEAN CORPUSCULAR HEMOGLOBIN 30.9 pg (27.0-31.0); MEAN CORPUSCULAR HGB CONC 34.5 g/dL (32.0-36.0); MEAN CORPUSCULAR VOLUME 89.6 fL (80.0-94.0); MEAN PLATELET VOLUME 13.3 fL (7.4-11.4); MONOCYTES # (AUTO) 0.5 10^3/uL (0.0-1.0); MONOCYTES % (AUTO) 7.1 %; NEUTROPHILS # (AUTO) 6.2 10^3/uL (1.5-6.6); NEUTROPHILS % (AUTO) 81.7 %; PLT - PLATELET COUNT 96 10^3/uL (130-450); RED CELL DISTRIBUTION WIDTH 13.7 % (12.0-15.0); WHITE BLOOD COUNT 7.6 x10^3/uL (4.8-10.8)
[2020-09-06 06:48] LABS: SLIDE REVIEW? Indicated
[2020-09-06 06:57] LABS: CALCIUM 8.4 mg/dL (8.5-10.3); CREATININE 1.4 mg/dL (0.6-1.2); MAGNESIUM 2.2 mg/dL (1.7-2.8); PHOSPHORUS 3.3 mg/dL (2.5-4.6); POTASSIUM 4.6 mmol/L (3.5-5.0)
--- NOTE | 2020-09-06 07:12 | PHARMACY PROGRESS NOTE ---
- Best Possible Medication History Admit Date and Time: 09/05/20 1625 Processed by: Nursing Medication History completed: Yes As the person ultimately responsible for medication therapy, providers are able to order a medication from an existing home medication list in [facility] via the "Reconcile Routine" prior to Confirmation of that medication by technician support association. Such practice is discouraged except when the physician, in their clinical judgment, deems that a medical need exists for a medication without regard to previous use.
[2020-09-06 07:26] LABS: PLATELET ESTIMATE, MANUAL DECREASED (<130,000) (NORMAL); PLATELET MORPHOLOGY NORMAL APPEARANCE (NORMAL); RBC MORPHOLOGY (MULTIPLE) NORMAL APPEARANCE (NORMAL); WBC MORPHOLOGY (MULTIPLE) NORMAL APPEARANCE (NORMAL)
[2020-09-06 07:27] LABS: DIFFERENTIAL COMMENT MANUAL=AUTO DIFF
--- NOTE | 2020-09-06 07:46 | PROVIDER PROGRESS NOTE ---
Assessment/Plan - Problem List (1) COVID-19 Assessment/Plan: On remdesivir. Today is day 2 of 5. Decadron 6 mg IV daily ordered. Day 2. We will hold off on any antibiotics since the patient is afebrile and his white count is normal. Supplemental oxygen via nasal cannula for an oxygen saturation greater than 92%. Albuterol every 4 hours as needed. (2) Acute respiratory failure with hypoxia Assessment/Plan: On remdesivir. Today is day 2 of 5. Decadron 6 mg IV daily ordered. Day 2. We will hold off on any antibiotics since the patient is afebrile and his white count is normal. Supplemental oxygen via nasal cannula for an oxygen saturation greater than 92%. Albuterol every 4 hours as needed. (3) Atrial fibrillation with RVR Assessment/Plan: Heart rate has fluctuated between 90 and 120 Tikosyn 125mg twice daily resumed today 09/06 On diltiazem 30mg q6hrs and metoprolol 5mg IV q6hrs Will de-escalate once Tikosyn takes effected On xarelto 20mg po daily If patient is in the hospital by 09/07/20, will obtain a 2D echocardiogram. (4) GREG (acute kidney injury) Assessment/Plan: Likely due to diarrhea Creatinine was 1.4. Patient was given a liter of normal saline in the ED. We will hold off on further IV hydration. We will monitor renal function (5) Dementia Assessment/Plan: On Aricept 5 mg p.o. daily. (6) BPH (benign prostatic hyperplasia) Assessment/Plan: On tamsulosin and finasteride. (7) Elevated troponin Assessment/Plan: Likely demand ischemia from tachycardia related to atrial fibrillation with rapid ventricular rhythm. Troponin trend was 22.8 . 16.5 > 16.8 - Current Meds Current Meds: Current Medications Generic Name Dose Route Start Last Admin Trade Name Freq PRN Reason Stop Dose Admin Acetaminophen 650 mg 09/05/20 16:25 09/06/20 01:57 Acetaminophen 325 Mg Tablet PO 650 mg Q4HR PRN Administration Pain 1 to 4 Diltiazem HCl 30 mg 09/05/20 18:00 09/06/20 06:27 Diltiazem 30 Mg Tablet PO 30 mg Q6HR CESAR Administration Metoprolol Tartrate 5 mg 09/06/20 01:30 09/06/20 01:46 Metoprolol 5 Mg/5 Ml Vial IVP 5 mg Q6H CESAR Administration Pantoprazole Sodium 40 mg 09/06/20 07:00 09/06/20 06:27 Pantoprazole 40 Mg Tablet PO 40 mg QDAC CESAR Administration Sodium Chloride 10 ml 09/05/20 17:00 09/05/20 23:40 Sodium Chloride Flush 0.9% 10 Ml Syringe IVP 10 ml 0100,0900,1700 CESAR Administration Sodium Chloride 10 ml 09/05/20 16:25 09/06/20 01:47 Sodium Chloride Flush 0.9% 10 Ml Syringe IVP 10 ml PRN PRN Administration NEEDED PER PROVIDER ORDERS - Lab Result Fish Bone Diagrams: 09/06/20 06:35 09/06/20 06:35 - Additional Planning My Orders: My Active Orders 09/05/20 16:25 Acetaminophen [Tylenol] 650 mg PO Q4HR PRN HYDROcod/ACETAM 5/325 [Bridgeton 5/325] 1 tab PO Q4HR PRN Ondansetron Inj [Zofran Inj] 4 mg IVP Q6HR PRN Sodium Chloride Flush 0.9% [Normal Saline Flush 0.9%] 10 ml IVP PRN PRN 09/05/20 16:26 Activity Orders [RC] Q2HR Daily Weight [RC] 0600 IO [RC] Q1HR Initiate Bowel Care Protocol [RC] QSHIFT Initiate ICU Electrolyte Prot. [RC] .protocol Initiate Line Care Protocol [RC] .protocol Initiate Personal Care Protoco [RC] .protocol Code Status [OTHERS] Routine Condition of Patient [OTHERS] Routine DVT Prophylaxis [OTHERS] Routine 09/05/20 16:30 Oxygen Therapy [RC] .PRN SCDs [RC] QSHIFT Telemetry- [RC] Q4HR 09/05/20 17:00 Sodium Chloride Flush 0.9% [Normal Saline Flush 0.9%] 10 ml IVP 0100,0900,1700 09/05/20 17:12 Mdi: Albuterol 2 puffs INH Q4H PRN 09/05/20 17:13 Resp Teach Nebulizer/MDI [RC] .ONCE 09/05/20 18:00 diltiaZEM [Cardizem] 30 mg PO Q6HR 09/06/20 07:00 Pantoprazole [Protonix] 40 mg PO QDAC 09/06/20 09:00 Remdesivir 100Mg Vial [Veklury] 100 mg Sodium Chloride 0.9% 100Ml [Normal Saline 0.9% 100Ml] 100 ml IV DAILY dexAMETHasone [Decadron] 6 mg IVP DAILY 09/07/20 05:00 BMP - BASIC METABOLIC PANEL [CHEM] DAILYLAB CBC - COMP BLD CT W/AUTO DIFF [HEME] DAILYLAB 09/08/20 05:00 BMP - BASIC METABOLIC PANEL [CHEM] DAILYLAB CBC - COMP BLD CT W/AUTO DIFF [HEME] DAILYLAB 09/09/20 05:00 BMP - BASIC METABOLIC PANEL [CHEM] DAILYLAB CBC - COMP BLD CT W/AUTO DIFF [HEME] DAILYLAB 09/10/20 05:00 BMP - BASIC METABOLIC PANEL [CHEM] DAILYLAB CBC - COMP BLD CT W/AUTO DIFF [HEME] DAILYLAB Subjective - Subjective Patient Reports: Other (Patient was resting comfortably in bed at time of exam. He denied any complaints.) Objective Vital Signs: Vital Signs - 24 hr 09/05/20 09/05/20 09/05/20 15:04 15:30 16:00 Temperature 36.6 C Heart Rate 134 H 145 H 150 H Heart Rate [ Monitoring electrodes] Respiratory 28 H 29 H 33 H Rate Blood Pressure 126/78 140/64 H 133/77 H Blood Pressure [Left Brachial artery] O2 Saturation 85 L 97 97 09/05/20 09/05/20 09/05/20 16:30 17:00 17:22 Temperature 37.2 C Heart Rate 158 H 154 H 122 H Heart Rate [ Monitoring electrodes] Respiratory 27 H 25 H 22 Rate Blood Pressure 138/101 H 115/89 H 111/67 Blood Pressure [Left Brachial artery] O2 Saturation 100 93 98 09/05/20 09/05/20 09/05/20 17:41 17:51 18:00 Temperature 35.7 C L Heart Rate Heart Rate [ 117 H 119 H Monitoring electrodes] Respiratory 25 H 20 Rate Blood Pressure 96/68 Blood Pressure 94/68 94/72 [Left Brachial artery] O2 Saturation 98 96 09/05/20 09/05/20 09/05/20 19:00 20:00 21:00 Temperature 36.3 C L Heart Rate Heart Rate [ 110 H 106 H 108 H Monitoring electrodes] Respiratory 25 H 25 H 28 H Rate Blood Pressure Blood Pressure 117/81 H 93/75 130/82 H [Left Brachial artery] O2 Saturation 97 97 96 09/05/20 09/05/20 09/05/20 22:00 23:00 23:25 Temperature 36.5 C Heart Rate Heart Rate [ 110 H 115 H Monitoring electrodes] Respiratory 26 H 21 Rate Blood Pressure Blood Pressure 118/88 H 127/83 H [Left Brachial artery] O2 Saturation 97 97 09/05/20 09/06/20 09/06/20 23:36 00:00 01:00 Temperature 36.5 C Heart Rate Heart Rate [ 122 H 113 H Monitoring electrodes] Respiratory 29 H 37 H Rate Blood Pressure 151/79 H Blood Pressure 154/74 H 133/68 H [Left Brachial artery] O2 Saturation 95 95 09/06/20 09/06/20 09/06/20 01:45 01:46 01:50 Temperature 38.5 C H Heart Rate Heart Rate [ 105 H Monitoring electrodes] Respiratory Rate Blood Pressure 132/79 H Blood Pressure 118/75 [Left Brachial artery] O2 Saturation 09/06/20 09/06/20 09/06/20 01:56 02:00 02:05 Temperature Heart Rate Heart Rate [ 103 H 98 104 H Monitoring electrodes] Respiratory Rate Blood Pressure Blood Pressure 117/77 112/85 H 122/73 [Left Brachial artery] O2 Saturation 09/06/20 09/06/20 09/06/20 02:15 02:30 02:45 Temperature Heart Rate Heart Rate [ 100 108 H 111 H Monitoring electrodes] Respiratory Rate Blood Pressure Blood Pressure 113/68 102/70 109/64 [Left Brachial artery] O2 Saturation 09/06/20 09/06/20 09/06/20 02:53 03:00 04:00 Temperature 36.8 C Heart Rate Heart Rate [ 104 H 113 H 118 H Monitoring electrodes] Respiratory 17 36 H 33 H Rate Blood Pressure Blood Pressure 109/64 107/72 109/64 [Left Brachial artery] O2 Saturation 95 93 93 09/06/20 09/06/20 09/06/20 05:00 06:00 06:27 Temperature Heart Rate Heart Rate [ 117 H 116 H Monitoring electrodes] Respiratory 28 H 16 Rate Blood Pressure 109/65 Blood Pressure 109/65 [Left Brachial artery] O2 Saturation 96 09/06/20 07:00 Temperature Heart Rate Heart Rate [ 124 H Monitoring electrodes] Respiratory 31 H Rate Blood Pressure Blood Pressure 116/78 [Left Brachial artery] O2 Saturation 97 Oxygen O2 Source Nasal cannula I&O (Last 24 Hrs): Intake and Output Totals x24h 09/04/20 09/05/20 09/06/20 23:59 23:59 23:59 Intake Total 1300 500 Output Total 50 610 Balance 1250 -110 General: Alert, Oriented x3, No acute distress HEENT: PERRLA, EOMI Neck: Supple, No JVD Neuro: Alert, Non Focal, Oriented Times 3 Cardiovascular: Regular rate, Normal S1, Normal S2, No murmurs Respiratory: Chest non-tender, Other (Crackles in lung bases) Abdomen: Normal bowel sounds, Soft, No tenderness, No masses Extremities: No clubbing, No cyanosis, No edema Skin: No rashes, No breakdown, No significant lesion - Results Results: Laboratory Results WBC 7.6 x10^3/uL (4.8-10.8) 09/06/20 06:35 RBC 5.30 10^6/uL (4.70-6.10) 09/06/20 06:35 Hgb 16.4 g/dL (14.0-18.0) 09/06/20 06:35 Hct 47.5 % (42.0-52.0) 09/06/20 06:35 MCV 89.6 fL (80.0-94.0) 09/06/20 06:35 MCH 30.9 pg (27.0-31.0) 09/06/20 06:35 MCHC 34.5 g/dL (32.0-36.0) 09/06/20 06:35 RDW 13.7 % (12.0-15.0) 09/06/20 06:35 Plt Count 96 10^3/uL (130-450) L 09/06/20 06:35 MPV 13.3 fL (7.4-11.4) H 09/06/20 06:35 Neut # (Auto) 6.2 10^3/uL (1.5-6.6) 09/06/20 06:35 Lymph # (Auto) 0.7 10^3/uL (1.5-3.5) L 09/06/20 06:35 Rogers # (Auto) 0.5 10^3/uL (0.0-1.0) 09/06/20 06:35 Eos # (Auto) 0.1 10^3/uL (0.0-0.7) 09/06/20 06:35 Baso # (Auto) 0.0 10^3/uL (0.0-0.1) 09/06/20 06:35 Absolute Nucleated RBC 0.00 x10^3/uL 09/06/20 06:35 Total Counted 100 09/05/20 15:21 Band Neuts % (Manual) Not Reportable 09/06/20 06:35 Reactive Lymphs % (Man) 4 % 09/05/20 15:21 Abnorm Lymph % (Manual) Not Reportable 09/06/20 06:35 Nucleated RBC % 0.0 /100WBC 09/06/20 06:35 Neutrophils # (Manual) Not Reportable 09/06/20 06:35 Lymphocytes # (Manual) Not Reportable 09/06/20 06:35 Monocytes # (Manual) Not Reportable 09/06/20 06:35 Eosinophils # (Manual) Not Reportable 09/06/20 06:35 Basophils # (Manual) Not Reportable 09/06/20 06:35 Differential Comment MANUAL=AUTO DIFF 09/06/20 06:35 Manual Slide Review Indicated 09/06/20 06:35 WBC Morphology NORMAL APPEARANCE (NORMAL) 09/06/20 06:35 Platelet Estimate DECREASED (<130,000) (NORMAL) 09/06/20 06:35 Platelet Morphology NORMAL APPEARANCE (NORMAL) 09/06/20 06:35 RBC Morph Micro Appear NORMAL APPEARANCE (NORMAL) 09/06/20 06:35 ESR 18 mm/Hr (0-20) 09/05/20 15:21 D-Dimer 217.3 ng/mL (200.0-255.0) 09/05/20 15:21 VBG pH 7.359 (7.31-7.41) 09/05/20 15:21 VBG pCO2 41.9 mmHg (41-51) 09/05/20 15:21 VBG pO2 25.2 mmHg (25-47) 09/05/20 15:21 VBG HCO3 23.1 mmol/L (23-28) 09/05/20 15:21 VBG Total CO2 24.4 mmol/L (24-29) 09/05/20 15:21 VBG O2 Saturation 48.4 % (60-80) L 09/05/20 15:21 VBG Base Excess -2.3 mmol/L (-2 - +2) L 09/05/20 15:21 Sodium 137 mmol/L (135-145) 09/06/20 06:35 Potassium 4.6 mmol/L (3.5-5.0) 09/06/20 06:35 Chloride 104 mmol/L (101-111) 09/06/20 06:35 Carbon Dioxide 22 mmol/L (21-32) 09/06/20 06:35 Anion Gap 11.0 (6-13) 09/06/20 06:35 BUN 22 mg/dL (6-20) H 09/06/20 06:35 Creatinine 1.4 mg/dL (0.6-1.2) H 09/06/20 06:35 Estimated GFR (MDRD) 49 (>89) L 09/06/20 06:35 Glucose 134 mg/dL (70-100) H 09/06/20 06:35 Calcium 8.4 mg/dL (8.5-10.3) L 09/06/20 06:35 Phosphorus 3.3 mg/dL (2.5-4.6) 09/06/20 06:35 Magnesium 2.2 mg/dL (1.7-2.8) 09/06/20 06:35 Total Bilirubin 1.3 mg/dL (0.2-1.0) H 09/05/20 15:21 AST 58 IU/L (10-42) H 09/05/20 15:21 ALT 32 IU/L (10-60) 09/05/20 15:21 Alkaline Phosphatase 36 IU/L (42-121) L 09/05/20 15:21 Troponin I High Sens 16.8 ng/L (2.3-19.7) 09/06/20 06:35 C-React Prot High Sens 92.8 mg/L 09/05/20 15:21 Total Protein 6.4 g/dL (6.7-8.2) L 09/05/20 15:21 Albumin 3.6 g/dL (3.2-5.5) 09/05/20 15:21 Globulin 2.8 g/dL (2.1-4.2) 09/05/20 15:21 Albumin/Globulin Ratio 1.3 (1.0-2.2) 09/05/20 15:21 Lipase 56 U/L (22-51) H 09/05/20 15:21 Nasal Screen MRSA (PCR) NEGATIVE (NEGATIVE) 09/05/20 17:42 ABX Reporting Has patient been on IV antibiotics over the past 48 hours?: No
[2020-09-06] MEDS: DEXAMETHASONE 10 MG/ML VIAL IVP SCH (08:18)
[2020-09-06] MEDS: SODIUM CHLORIDE FLUSH 0.9% 10 ML SYRINGE IVP SCH ×3 (08:19→22:44)
[2020-09-06] MEDS: REMDESIVIR 100MG VIAL 100 MG in SODIUM CHLORIDE 0.9% 100ML 100 ML IV SCH (09:40)
[2020-09-06] MEDS ORDERED: diltiaZEM 30 MG TABLET PO ONE ×2 (17:05→23:26)
[2020-09-06] MEDS ORDERED: ASPIRIN EC 81 MG TABLET PO ONE (18:00)
[2020-09-06] MEDS: ASPIRIN EC 81 MG TABLET PO SCH (18:00)
[2020-09-06] MEDS ORDERED: METOPROLOL 5 MG/5 ML VIAL IVP ONE ×2 (19:59→22:34)
[2020-09-06] MEDS ORDERED: ACETAMINOPHEN 325 MG TABLET PO ONE (19:59)
[2020-09-06] MEDS: DOFETILIDE 125 MCG PO SCH (21:30)
--- NOTE | 2020-09-06 22:28 | PROVIDER PROGRESS NOTE ---
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 No Tikosyn was brought in from his home, because is sick with COVID and no one else is able to bring it in. BP running only 100-110 systolic. creat 1.4 yesterday and today (his baseline creat is 1.1) Meds reviewed. Imp: Afib with RVR "Soft" BP Plan: Increase Metoprolol from 5 mg iv q6h to 7.5 mg iv q6h. Increase Cardizem from 30 mg po q6h to 60 mg po q6h. Stop Lisinopril. Restart iv fluids Obtain Echo tomorrow (Mon), since pt is not yet discharging (today is Sun), to evaluate LVEF Check a TSH to r/o hyperthyroidism Continue Xarelto CRITICAL CARE TIME SPENT: 30 min
[2020-09-06] MEDS ORDERED: SODIUM CHLORIDE 0.9% 1,000 ML IV ONE (23:26)
[2020-09-06] MEDS ORDERED: SODIUM CHLORIDE 0.9% 1,000 ML IV SCH (23:45)
[2020-09-07] MEDS ORDERED: METOPROLOL 5 MG/5 ML VIAL IVP ONE (04:14)
[2020-09-07] MEDS: METOPROLOL 5 MG/5 ML VIAL IVP SCH ×4 (04:25→21:24)
[2020-09-07 05:37] LABS: CALCIUM, IONIZED 1.16 mmol/L (1.15-1.33); VBG PH 7.313 (7.31-7.41)
[2020-09-07 05:38] LABS: BASOPHILS % (AUTO) 0.1 %; HCT - HEMATOCRIT 45.9 % (42.0-52.0); HGB - HEMOGLOBIN 15.8 g/dL (14.0-18.0); LYMPHOCYTES # (AUTO) 0.7 10^3/uL (1.5-3.5); LYMPHOCYTES % (AUTO) 8.4 %; MEAN CORPUSCULAR HEMOGLOBIN 30.9 pg (27.0-31.0); MEAN CORPUSCULAR HGB CONC 34.4 g/dL (32.0-36.0); MEAN CORPUSCULAR VOLUME 89.6 fL (80.0-94.0); MEAN PLATELET VOLUME 13.1 fL (7.4-11.4); MONOCYTES # (AUTO) 0.7 10^3/uL (0.0-1.0); MONOCYTES % (AUTO) 8.8 %; NEUTROPHILS # (AUTO) 6.5 10^3/uL (1.5-6.6); NEUTROPHILS % (AUTO) 81.9 %; PLT - PLATELET COUNT 125 10^3/uL (130-450); RED BLOOD COUNT 5.12 10^6/uL (4.70-6.10); RED CELL DISTRIBUTION WIDTH 13.7 % (12.0-15.0); WHITE BLOOD COUNT 7.9 x10^3/uL (4.8-10.8)
[2020-09-07] MEDS ORDERED: PANTOPRAZOLE 40 MG TABLET ONE (05:38)
[2020-09-07] MEDS ORDERED: diltiaZEM 30 MG TABLET PO ONE (05:38)
[2020-09-07] MEDS: PANTOPRAZOLE 40 MG TABLET PO SCH (05:38)
[2020-09-07] MEDS: diltiaZEM 30 MG TABLET PO SCH ×3 (05:39→18:19)
[2020-09-07 05:47] LABS: CALCIUM 8.5 mg/dL (8.5-10.3); CREATININE 1.2 mg/dL (0.6-1.2); MAGNESIUM 2.4 mg/dL (1.7-2.8); PHOSPHORUS 2.5 mg/dL (2.5-4.6); POTASSIUM 4.2 mmol/L (3.5-5.0)
--- NOTE | 2020-09-07 07:52 | PROVIDER PROGRESS NOTE ---
Assessment/Plan - Problem List (1) COVID-19 Assessment/Plan: On remdesivir. Today is day 3 of 5. Decadron 6 mg IV daily ordered. Day 3. We will continue to hold off on any antibiotics since the patient is afebrile and his white count is normal. The patient's oxygen requirement has increased. He is currently on 5 L of oxygen via nasal cannula and his oxygen saturation frequently drops into the 87 to 92% range He sunita not exhibit symptoms of dyspnea during these periods. Albuterol every 4 hours as needed. (2) Acute respiratory failure with hypoxia Assessment/Plan: On remdesivir. Today is day 3 of 5. Decadron 6 mg IV daily ordered. Day 3. We will continue to hold off on any antibiotics since the patient is afebrile and his white count is normal. The patient's oxygen requirement has increased. He is currently on 5 L of oxygen via nasal cannula and his oxygen saturation frequently drops into the 87 to 92% range He sunita not exhibit symptoms of dyspnea during these periods. Albuterol every 4 hours as needed. (3) Atrial fibrillation with RVR Assessment/Plan: Heart rate has fluctuated between 90 and 120 Tikosyn 125mg twice daily resumed today 09/07 morning Diltiazem increased to 60mg q6hrs and metoprolol increased to 7.5mg IV q6hrs Will de-escalate once Tikosyn takes effected On xarelto 20mg po daily 2D echocardiogram ordered 09/07. Results pending. (4) GREG (acute kidney injury) Assessment/Plan: Lisinopril held. Creatinine improved from 1.4-1.2 Patient was started on Normal saline at 83 mL/h at midnight. In 12 hours he has received about a liter of fluids. Will discontinue fluids due to patient's increased oxygen requirement. (5) Dementia Assessment/Plan: On Aricept 5 mg p.o. daily. (6) BPH (benign prostatic hyperplasia) Assessment/Plan: On tamsulosin and finasteride. (7) Elevated troponin Assessment/Plan: Likely demand ischemia from tachycardia related to atrial fibrillation with rapid ventricular rhythm. Troponin trend was 22.8 . 16.5 > 16.8 - Current Meds Current Meds: Current Medications Generic Name Dose Route Start Last Admin Trade Name Freq PRN Reason Stop Dose Admin Acetaminophen 650 mg 09/05/20 16:25 09/06/20 20:10 Acetaminophen 325 Mg Tablet PO 650 mg Q4HR PRN Administration Pain 1 to 4 Aspirin 81 mg 09/06/20 18:00 09/06/20 18:00 Aspirin Ec 81 Mg Tablet PO 81 mg Q24H CESAR Administration Dexamethasone 6 mg 09/06/20 09:00 09/06/20 08:18 Dexamethasone 10 Mg/Ml Vial IVP 6 mg DAILY CESAR Administration Diltiazem HCl 60 mg 09/07/20 00:00 09/07/20 05:39 Diltiazem 30 Mg Tablet PO 60 mg Q6HR CESAR Administration Remdesivir 100 mg/ Sodium 100 mls @ 200 mls/hr 09/06/20 09:00 09/06/20 10:15 Chloride IV 09/09/20 09:29 Infused DAILY CESAR Infusion Sodium Chloride 1,000 mls @ 83.333 mls/hr 09/06/20 23:45 09/07/20 07:00 Normal Saline 0.9% IV 83.3 mls/hr .Q12H CESAR Infusion Metoprolol Tartrate 7.5 mg 09/06/20 22:20 09/07/20 04:25 Metoprolol 5 Mg/5 Ml Vial IVP 7.5 mg Q6H CESAR Administration Non-Formulary Medication 125 mcg 09/06/20 21:00 09/06/20 21:30 Dofetilide [Tikosyn] PO Not Given BID CESAR Pantoprazole Sodium 40 mg 09/06/20 07:00 09/07/20 05:38 Pantoprazole 40 Mg Tablet PO 40 mg QDAC CESAR Administration Sodium Chloride 10 ml 09/05/20 17:00 09/06/20 22:44 Sodium Chloride Flush 0.9% 10 Ml Syringe IVP 10 ml 0100,0900,1700 CESAR Administration Sodium Chloride 10 ml 09/05/20 16:25 09/06/20 20:10 Sodium Chloride Flush 0.9% 10 Ml Syringe IVP 10 ml PRN PRN Administration NEEDED PER PROVIDER ORDERS - Lab Result Fish Bone Diagrams: 09/07/20 05:28 09/07/20 05:28 - Additional Planning My Orders: My Active Orders 09/06/20 07:00 Pantoprazole [Protonix] 40 mg PO QDAC 09/06/20 09:00 Remdesivir 100Mg Vial [Veklury] 100 mg Sodium Chloride 0.9% 100Ml [Normal Saline 0.9% 100Ml] 100 ml IV DAILY dexAMETHasone [Decadron] 6 mg IVP DAILY 09/06/20 18:00 Aspirin EC [Ecotrin] 81 mg PO Q24H 09/06/20 21:00 Dofetilide [Tikosyn] 125 mcg PO BID 09/07/20 09:00 Donepezil [Aricept] 5 mg PO DAILY Finasteride [Proscar] 5 mg PO DAILY Rivaroxaban [Xarelto] 20 mg PO DAILY Tamsulosin [Flomax] 0.4 mg PO DAILY 09/08/20 05:00 BMP - BASIC METABOLIC PANEL [CHEM] DAILYLAB CALCIUM, IONIZED ([facility]) [BG] DAILYLAB CBC - COMP BLD CT W/AUTO DIFF [HEME] DAILYLAB MAGNESIUM [CHEM] DAILYLAB PHOSPHORUS [CHEM] DAILYLAB 09/09/20 05:00 BMP - BASIC METABOLIC PANEL [CHEM] DAILYLAB CALCIUM, IONIZED ([facility]) [BG] DAILYLAB CBC - COMP BLD CT W/AUTO DIFF [HEME] DAILYLAB MAGNESIUM [CHEM] DAILYLAB PHOSPHORUS [CHEM] DAILYLAB 09/10/20 05:00 BMP - BASIC METABOLIC PANEL [CHEM] DAILYLAB CBC - COMP BLD CT W/AUTO DIFF [HEME] DAILYLAB Subjective - Subjective Patient Reports: Other (Patient was resting comfortably in bed at time of exam. He denied dyspnea. He has been afebrile. However his oxygen requirement has increased slightly from time of admission. He is currently on 5 L of oxygen via nasal cannula and his oxygen saturation frequently into the 87% and 92% range.) Objective Vital Signs: Vital Signs - 24 hr 09/06/20 09/06/20 09/06/20 08:00 08:10 08:20 Temperature 36.8 C Heart Rate [ 109 H 91 Monitoring electrodes] Respiratory 24 25 H Rate Blood Pressure 108/72 Blood Pressure 108/72 105/62 [Left Brachial artery] O2 Saturation 94 90 L 09/06/20 09/06/20 09/06/20 09:00 10:00 11:00 Temperature Heart Rate [ 102 H 112 H 106 H Monitoring electrodes] Respiratory 29 H 22 28 H Rate Blood Pressure Blood Pressure 85/74 L 89/63 L 96/65 [Left Brachial artery] O2 Saturation 94 94 93 09/06/20 09/06/20 09/06/20 12:00 14:00 14:10 Temperature 36.7 C Heart Rate [ 114 H 113 H 103 H Monitoring electrodes] Respiratory 30 H 32 H 30 H Rate Blood Pressure 111/75 116/63 Blood Pressure 111/75 116/63 109/76 [Left Brachial artery] O2 Saturation 94 94 94 09/06/20 09/06/20 09/06/20 15:00 16:00 17:00 Temperature Heart Rate [ 99 108 H 113 H Monitoring electrodes] Respiratory 28 H 36 H 32 H Rate Blood Pressure Blood Pressure 130/84 H 147/85 H 134/72 H [Left Brachial artery] O2 Saturation 92 91 L 91 L 09/06/20 09/06/20 09/06/20 18:00 19:00 20:00 Temperature 36.5 C Heart Rate [ 115 H 111 H 124 H Monitoring electrodes] Respiratory 28 H 28 H 26 H Rate Blood Pressure 102/87 H Blood Pressure 102/87 H 97/65 112/91 H [Left Brachial artery] O2 Saturation 93 93 93 09/06/20 09/06/20 09/06/20 20:08 20:10 20:15 Temperature Heart Rate [ 115 H 107 H Monitoring electrodes] Respiratory Rate Blood Pressure 127/99 H Blood Pressure 127/99 H 114/80 [Left Brachial artery] O2 Saturation 09/06/20 09/06/20 09/06/20 20:20 20:26 20:30 Temperature Heart Rate [ 110 H 109 H 105 H Monitoring electrodes] Respiratory Rate Blood Pressure Blood Pressure 128/78 114/77 114/80 [Left Brachial artery] O2 Saturation 09/06/20 09/06/20 09/06/20 20:35 20:45 21:00 Temperature Heart Rate [ 111 H 111 H 117 H Monitoring electrodes] Respiratory 29 H Rate Blood Pressure Blood Pressure 130/67 122/69 113/97 H [Left Brachial artery] O2 Saturation 94 09/06/20 09/06/20 09/06/20 21:15 22:00 22:44 Temperature Heart Rate [ 109 H 121 H Monitoring electrodes] Respiratory 27 H Rate Blood Pressure 116/62 Blood Pressure 119/70 107/64 [Left Brachial artery] O2 Saturation 94 09/06/20 09/06/20 09/06/20 22:45 22:50 22:55 Temperature Heart Rate [ 113 H 109 H 110 H Monitoring electrodes] Respiratory Rate Blood Pressure Blood Pressure 113/72 85/73 L 104/74 [Left Brachial artery] O2 Saturation 09/06/20 09/06/20 09/07/20 23:00 23:52 00:00 Temperature 36.1 C L Heart Rate [ 109 H 111 H Monitoring electrodes] Respiratory 31 H 26 H Rate Blood Pressure 132/80 H Blood Pressure 110/73 123/68 [Left Brachial artery] O2 Saturation 95 93 09/07/20 09/07/20 09/07/20 01:00 02:00 03:00 Temperature Heart Rate [ 110 H 119 H 119 H Monitoring electrodes] Respiratory 22 27 H 27 H Rate Blood Pressure Blood Pressure 114/72 126/66 126/66 [Left Brachial artery] O2 Saturation 92 94 94 09/07/20 09/07/20 09/07/20 04:00 04:24 04:25 Temperature Heart Rate [ 123 H 121 H Monitoring electrodes] Respiratory 26 H Rate Blood Pressure 116/76 Blood Pressure 115/58 L 116/76 [Left Brachial artery] O2 Saturation 92 09/07/20 09/07/20 09/07/20 04:30 04:47 05:00 Temperature 36.1 C L Heart Rate [ 107 H 109 H Monitoring electrodes] Respiratory 22 Rate Blood Pressure Blood Pressure 103/72 98/54 L [Left Brachial artery] O2 Saturation 09/07/20 09/07/20 09/07/20 05:10 05:15 05:30 Temperature Heart Rate [ 102 H 95 106 H Monitoring electrodes] Respiratory Rate Blood Pressure Blood Pressure 106/62 106/65 103/60 [Left Brachial artery] O2 Saturation 09/07/20 09/07/20 09/07/20 05:39 06:01 07:00 Temperature Heart Rate [ 106 H 111 H Monitoring electrodes] Respiratory 19 23 Rate Blood Pressure 103/60 Blood Pressure 126/74 129/76 [Left Brachial artery] O2 Saturation 92 91 L Oxygen O2 Source Nasal cannula I&O (Last 24 Hrs): Intake and Output Totals x24h 09/05/20 09/06/20 09/07/20 23:59 23:59 23:59 Intake Total 1300 2390 794.207 Output Total 50 1282 415 Balance 1250 1108 379.207 General: Alert, Oriented x3, No acute distress HEENT: Atraumatic, PERRLA, EOMI Neck: Supple, No JVD Neuro: Alert, Non Focal, Oriented Times 3 Cardiovascular: Regular rate, No murmurs Respiratory: Chest non-tender, No respiratory distress, Other (Crackles in lung bases) Abdomen: Normal bowel sounds, Soft, No tenderness, No masses Extremities: No clubbing, No cyanosis, No edema Skin: No rashes, No breakdown, No significant lesion - Results Results: Laboratory Results WBC 7.9 x10^3/uL (4.8-10.8) 09/07/20 05:28 RBC 5.12 10^6/uL (4.70-6.10) 09/07/20 05:28 Hgb 15.8 g/dL (14.0-18.0) 09/07/20 05:28 Hct 45.9 % (42.0-52.0) 09/07/20 05:28 MCV 89.6 fL (80.0-94.0) 09/07/20 05:28 MCH 30.9 pg (27.0-31.0) 09/07/20 05:28 MCHC 34.4 g/dL (32.0-36.0) 09/07/20 05:28 RDW 13.7 % (12.0-15.0) 09/07/20 05:28 Plt Count 125 10^3/uL (130-450) L 09/07/20 05:28 MPV 13.1 fL (7.4-11.4) H 09/07/20 05:28 Neut # (Auto) 6.5 10^3/uL (1.5-6.6) 09/07/20 05:28 Lymph # (Auto) 0.7 10^3/uL (1.5-3.5) L 09/07/20 05:28 Luna # (Auto) 0.7 10^3/uL (0.0-1.0) 09/07/20 05:28 Eos # (Auto) 0.0 10^3/uL (0.0-0.7) 09/07/20 05:28 Baso # (Auto) 0.0 10^3/uL (0.0-0.1) 09/07/20 05:28 Absolute Nucleated RBC 0.00 x10^3/uL 09/07/20 05:28 Total Counted 100 09/05/20 15:21 Band Neuts % (Manual) Not Reportable 09/06/20 06:35 Reactive Lymphs % (Man) 4 % 09/05/20 15:21 Abnorm Lymph % (Manual) Not Reportable 09/06/20 06:35 Nucleated RBC % 0.0 /100WBC 09/07/20 05:28 Neutrophils # (Manual) Not Reportable 09/06/20 06:35 Lymphocytes # (Manual) Not Reportable 09/06/20 06:35 Monocytes # (Manual) Not Reportable 09/06/20 06:35 Eosinophils # (Manual) Not Reportable 09/06/20 06:35 Basophils # (Manual) Not Reportable 09/06/20 06:35 Differential Comment MANUAL=AUTO DIFF 09/06/20 06:35 Manual Slide Review Indicated 09/06/20 06:35 WBC Morphology NORMAL APPEARANCE (NORMAL) 09/06/20 06:35 Platelet Estimate DECREASED (<130,000) (NORMAL) 09/06/20 06:35 Platelet Morphology NORMAL APPEARANCE (NORMAL) 09/06/20 06:35 RBC Morph Micro Appear NORMAL APPEARANCE (NORMAL) 09/06/20 06:35 ESR 18 mm/Hr (0-20) 09/05/20 15:21 D-Dimer 217.3 ng/mL (200.0-255.0) 09/05/20 15:21 VBG pH 7.313 (7.31-7.41) 09/07/20 05:28 VBG pCO2 41.9 mmHg (41-51) 09/05/20 15:21 VBG pO2 25.2 mmHg (25-47) 09/05/20 15:21 VBG HCO3 23.1 mmol/L (23-28) 09/05/20 15:21 VBG Total CO2 24.4 mmol/L (24-29) 09/05/20 15:21 VBG O2 Saturation 48.4 % (60-80) L 09/05/20 15:21 VBG Base Excess -2.3 mmol/L (-2 - +2) L 09/05/20 15:21 Ionized Calcium 1.16 mmol/L (1.15-1.33) 09/07/20 05:28 Sodium 136 mmol/L (135-145) 09/07/20 05:28 Potassium 4.2 mmol/L (3.5-5.0) 09/07/20 05:28 Chloride 106 mmol/L (101-111) 09/07/20 05:28 Carbon Dioxide 20 mmol/L (21-32) L 09/07/20 05:28 Anion Gap 10.0 (6-13) 09/07/20 05:28 BUN 33 mg/dL (6-20) H 09/07/20 05:28 Creatinine 1.2 mg/dL (0.6-1.2) 09/07/20 05:28 Estimated GFR (MDRD) 59 (>89) L 09/07/20 05:28 Glucose 219 mg/dL (70-100) H 09/07/20 05:28 Calcium 8.5 mg/dL (8.5-10.3) 09/07/20 05:28 Phosphorus 2.5 mg/dL (2.5-4.6) 09/07/20 05:28 Magnesium 2.4 mg/dL (1.7-2.8) 09/07/20 05:28 Total Bilirubin 1.3 mg/dL (0.2-1.0) H 09/05/20 15:21 AST 58 IU/L (10-42) H 09/05/20 15:21 ALT 32 IU/L (10-60) 09/05/20 15:21 Alkaline Phosphatase 36 IU/L (42-121) L 09/05/20 15:21 Troponin I High Sens 16.8 ng/L (2.3-19.7) 09/06/20 06:35 C-React Prot High Sens 92.8 mg/L 09/05/20 15:21 Total Protein 6.4 g/dL (6.7-8.2) L 09/05/20 15:21 Albumin 3.6 g/dL (3.2-5.5) 09/05/20 15:21 Globulin 2.8 g/dL (2.1-4.2) 09/05/20 15:21 Albumin/Globulin Ratio 1.3 (1.0-2.2) 09/05/20 15:21 Lipase 56 U/L (22-51) H 09/05/20 15:21 TSH 0.65 uIU/mL (0.34-5.60) 09/07/20 05:28 Nasal Screen MRSA (PCR) NEGATIVE (NEGATIVE) 09/05/20 17:42 ABX Reporting Has patient been on IV antibiotics over the past 48 hours?: No
[2020-09-07] MEDS ORDERED: NON FORMULARY MED (Lisinopril [Zestril] 10 MG Tablet) PO SCH (09:00)
[2020-09-07] MEDS ORDERED: RIVAROXABAN 10 MG TABLET PO SCH (09:00)
[2020-09-07] MEDS ORDERED: DONEPEZIL 5 MG TABLET PO SCH (09:00)
[2020-09-07] MEDS ORDERED: NON FORMULARY MED (Rivaroxaban [Xarelto] 20 MG Tablet) PO SCH (09:00)
[2020-09-07] MEDS ORDERED: lisinopriL 5 MG TABLET PO SCH (09:00)
[2020-09-07] MEDS: REMDESIVIR 100MG VIAL 100 MG in SODIUM CHLORIDE 0.9% 100ML 100 ML IV SCH (09:22)
[2020-09-07] MEDS: DEXAMETHASONE 10 MG/ML VIAL IVP SCH (09:22)
[2020-09-07] MEDS: TAMSULOSIN 0.4 MG CAPSULE PO SCH (09:25)
[2020-09-07] MEDS: FINASTERIDE 5 MG TABLET PO SCH (10:32)
[2020-09-07] MEDS: DOFETILIDE 125 MCG PO SCH ×3 (10:32→20:12)
[2020-09-07] MEDS: SODIUM CHLORIDE FLUSH 0.9% 10 ML SYRINGE IVP SCH ×3 (10:33→20:13)
[2020-09-07] MEDS: SODIUM CHLORIDE FLUSH 0.9% 10 ML SYRINGE IVP PRN ×2 (12:43→21:24)
[2020-09-07] MEDS: ASPIRIN EC 81 MG TABLET PO SCH (18:20)
[2020-09-07] MEDS: DONEPEZIL 5 MG TABLET PO SCH (20:12)
[2020-09-08] MEDS: diltiaZEM 30 MG TABLET PO SCH ×6 (00:15→23:36)
[2020-09-08] MEDS: METOPROLOL 5 MG/5 ML VIAL IVP SCH ×3 (04:45→23:36)
[2020-09-08] MEDS: SODIUM CHLORIDE FLUSH 0.9% 10 ML SYRINGE IVP PRN (04:45)
[2020-09-08 04:58] LABS: CALCIUM, IONIZED 1.13 mmol/L (1.15-1.33); VBG PH 7.414 (7.31-7.41)
[2020-09-08 05:03] LABS: BASOPHILS % (AUTO) 0.1 %; HCT - HEMATOCRIT 46.4 % (42.0-52.0); HGB - HEMOGLOBIN 15.5 g/dL (14.0-18.0); LYMPHOCYTES # (AUTO) 0.7 10^3/uL (1.5-3.5); LYMPHOCYTES % (AUTO) 6.8 %; MEAN CORPUSCULAR HEMOGLOBIN 30.6 pg (27.0-31.0); MEAN CORPUSCULAR HGB CONC 33.4 g/dL (32.0-36.0); MEAN CORPUSCULAR VOLUME 91.7 fL (80.0-94.0); MEAN PLATELET VOLUME 13.1 fL (7.4-11.4); MONOCYTES # (AUTO) 0.8 10^3/uL (0.0-1.0); NEUTROPHILS # (AUTO) 9.4 10^3/uL (1.5-6.6); NEUTROPHILS % (AUTO) 85.4 %; PLT - PLATELET COUNT 137 10^3/uL (130-450); RED BLOOD COUNT 5.06 10^6/uL (4.70-6.10); RED CELL DISTRIBUTION WIDTH 13.7 % (12.0-15.0)
[2020-09-08 05:08] LABS: CALCIUM 8.4 mg/dL (8.5-10.3); CREATININE 1.3 mg/dL (0.6-1.2); MAGNESIUM 2.3 mg/dL (1.7-2.8); PHOSPHORUS 2.8 mg/dL (2.5-4.6); POTASSIUM 4.1 mmol/L (3.5-5.0)
[2020-09-08] MEDS: PANTOPRAZOLE 40 MG TABLET PO SCH (05:59)
[2020-09-08] MEDS ORDERED: SODIUM CHLORIDE 0.9% 1,000 ML IV SCH (08:00)
[2020-09-08] MEDS: DOFETILIDE 125 MCG PO SCH (09:02)
[2020-09-08] MEDS: RIVAROXABAN 10 MG TABLET PO SCH (09:04)
[2020-09-08] MEDS: FINASTERIDE 5 MG TABLET PO SCH (09:04)
[2020-09-08] MEDS: DEXAMETHASONE 10 MG/ML VIAL IVP SCH (09:05)
[2020-09-08] MEDS: TAMSULOSIN 0.4 MG CAPSULE PO SCH (09:05)
[2020-09-08] MEDS: REMDESIVIR 100MG VIAL 100 MG in SODIUM CHLORIDE 0.9% 100ML 100 ML IV SCH (09:05)
[2020-09-08] MEDS: ACETAMINOPHEN 325 MG TABLET PO PRN (09:05)
[2020-09-08] MEDS: INSULIN ASPART 300 UNIT/3 ML PEN SUBQ SCH ×4 (09:06→20:14)
[2020-09-08] MEDS: SODIUM CHLORIDE FLUSH 0.9% 10 ML SYRINGE IVP SCH ×3 (09:19→23:36)
[2020-09-08] MEDS ORDERED: AZITHROMYCIN 250 MG TABLET PO SCH (11:00)
[2020-09-08] MEDS: cefTRIAXone 2 GM in SODIUM CHLORIDE 0.9% MINIBAG 100 ML IV SCH (11:47)
[2020-09-08] MEDS: SACCHAROMYCES BOULARDII 250 MG CAPSULE PO SCH ×2 (11:47→17:51)
[2020-09-08] MEDS: DOXYCYCLINE 100 MG TABLET PO SCH ×2 (11:47→20:13)
[2020-09-08] MEDS ORDERED: METOPROLOL 5 MG/5 ML VIAL IVP PRN (12:01)
--- NOTE | 2020-09-08 12:19 | PROVIDER PROGRESS NOTE ---
Assessment/Plan - Problem List (1) COVID-19 Assessment/Plan: 09/08 Patient had a 100% sats on 4 L oxygen, patient has no acute respiratory distress, We will gradually wean/reduce oxygen supplement As patient tolerated. continue remdesivir and Decadron 6 mg IV daily ordered And he will finish the treatment course, Continue Xarelto as patient home medication pt has elevated WBC, CXR reveal atypical pneumonia, add antibiotics and probiotics for possible bacterial pneumonia (2) Acute respiratory failure with hypoxia Assessment/Plan: improved slightly but pt is still on O2, continue the treatment of Covid 19 and possible bacterial pneumonia Albuterol every 4 hours as needed. (3) Atrial fibrillation with RVR Assessment/Plan: heart rate is still not under of control. new EKG done on today show increased QTC from 516 to 548. pt was started on Tikosyn from last night. we will hold Tikosyn, add Digonix and check serum dignoxin, PRN metoprolol, continue scheduled Cardizem. ECHO show pt had normal EF. Continue on Xarelto, Continue telemetry (4) CKD Assessment/Plan: creatinine is 1.3 as his baseline, gently IVF on one bag, Continue [facility] (5) Dementia Assessment/Plan: On Aricept 5 mg p.o. daily. (6) BPH (benign prostatic hyperplasia) Assessment/Plan: On tamsulosin and finasteride. (7) Elevated troponin Assessment/Plan: Likely demand ischemia from tachycardia related to atrial fibrillation with rapid ventricular rhythm. Troponin trend was 22.8 . 16.5 > 16.8 - Current Meds Current Meds: Current Medications Generic Name Dose Route Start Last Admin Trade Name Breanna PRN Reason Stop Dose Admin Acetaminophen 650 mg 09/05/20 16:25 09/08/20 09:05 Acetaminophen 325 Mg Tablet PO 650 mg Q4HR PRN Administration Pain 1 to 4 Aspirin 81 mg 09/06/20 18:00 09/07/20 18:20 Aspirin Ec 81 Mg Tablet PO 81 mg Q24H [facility] Administration Dexamethasone 6 mg 09/06/20 09:00 09/08/20 09:05 Dexamethasone 10 Mg/Ml Vial IVP 6 mg DAILY [facility] Administration Diltiazem HCl 60 mg 09/07/20 00:00 09/08/20 05:53 Diltiazem 30 Mg Tablet PO 60 mg Q6HR [facility] Administration Donepezil HCl 5 mg 09/07/20 21:00 09/07/20 20:12 Donepezil 5 Mg Tablet PO 5 mg QPM [facility] Administration Doxycycline Hyclate 100 mg 09/08/20 11:00 09/08/20 11:47 Doxycycline 100 Mg Tablet PO 100 mg BID [facility] Administration Finasteride 5 mg 09/07/20 09:00 09/08/20 09:04 Finasteride 5 Mg Tablet PO 5 mg DAILY [facility] Administration Remdesivir 100 mg/ Sodium 100 mls @ 200 mls/hr 09/06/20 09:00 09/08/20 09:40 Chloride IV 09/09/20 09:29 Infused DAILY [facility] Infusion Sodium Chloride 1,000 mls @ 83.333 mls/hr 09/08/20 08:00 09/08/20 11:52 Normal Saline 0.9% IV 09/08/20 19:59 0 mls/hr .Q12H [facility] Infusion Ceftriaxone Sodium 2 gm/ 100 mls @ 200 mls/hr 09/08/20 10:00 09/08/20 11:47 Sodium Chloride IV 200 mls/hr DAILY [facility] Administration Insulin Aspart 1 - 5 unit 09/08/20 08:00 09/08/20 11:55 Insulin Aspart 300 Unit/3 Ml Pen SUBQ 4 unit 0800,1200,1700,2100 [facility] Administration Protocol Pantoprazole Sodium 40 mg 09/06/20 07:00 09/08/20 05:59 Pantoprazole 40 Mg Tablet PO 40 mg QDAC [facility] Administration Rivaroxaban 20 mg 09/08/20 08:00 09/08/20 09:04 Rivaroxaban 10 Mg Tablet PO 20 mg DAILYWM [facility] Administration Saccharomyces Boulardii 250 mg 09/08/20 08:00 09/08/20 11:47 Saccharomyces Boulardii 250 Mg Capsule PO 250 mg BIDWM [facility] Administration Sodium Chloride 10 ml 09/05/20 17:00 09/08/20 09:19 Sodium Chloride Flush 0.9% 10 Ml Syringe IVP 10 ml 0100,0900,1700 [facility] Administration Sodium Chloride 10 ml 09/05/20 16:25 09/08/20 04:45 Sodium Chloride Flush 0.9% 10 Ml Syringe IVP 10 ml PRN PRN Administration NEEDED PER PROVIDER ORDERS Tamsulosin HCl 0.4 mg 09/07/20 09:00 09/08/20 09:05 Tamsulosin 0.4 Mg Capsule PO 0.4 mg DAILY [facility] Administration - Lab Result Fish Bone Diagrams: 09/08/20 04:46 09/08/20 04:46 - Additional Planning My Orders: My Active Orders 09/08/20 07:54 Blood Glucose Checks - Eating [RC] 0800,1200,1700,2100 Initiate Hypoglycemia Protocol [RC] .protocol 09/08/20 08:00 Insulin Aspart [NovoLOG] 1 - 5 unit SUBQ 0800,1200,1700,2100 Saccharomyces Boulardii [Florastor] 250 mg PO BIDWM Sodium Chloride 0.9% [Normal Saline 0.9%] 1,000 ml IV 83.333 mls/hr 09/08/20 10:00 cefTRIAXone [Rocephin] 2 gm Sodium Chloride 0.9% Minibag [Normal Saline 0.9% Minibag] 100 ml IV DAILY 09/08/20 11:00 Doxycycline [Vibramycin] 100 mg PO BID 09/08/20 12:01 Metoprolol Inj [Lopressor Inj] 7.5 mg IVP Q6H PRN 09/09/20 05:00 DIGOXIN [CHEM] DAILYLAB HEMOGLOBIN A1c% [CHEM] DAILYLAB 09/09/20 09:00 Digoxin [Lanoxin] 125 mcg PO DAILY 09/10/20 05:00 DIGOXIN [CHEM] DAILYLAB 09/11/20 05:00 DIGOXIN [CHEM] DAILYLAB 09/12/20 05:00 DIGOXIN [CHEM] DAILYLAB Subjective - Subjective Patient Reports: Feeling Better Nursing Reports: No Complaints Objective Vital Signs: Vital Signs - 24 hr 09/07/20 09/07/20 09/07/20 12:14 13:00 14:00 Temperature Heart Rate Heart Rate [ 113 H 115 H Monitoring electrodes] Respiratory 22 24 Rate Blood Pressure 129/113 H Blood Pressure 92/77 105/68 [Left Brachial artery] O2 Saturation 93 91 L 09/07/20 09/07/20 09/07/20 15:00 16:00 16:50 Temperature Heart Rate Heart Rate [ 112 H 108 H 97 Monitoring electrodes] Respiratory 31 H 25 H 24 Rate Blood Pressure Blood Pressure 108/75 99/82 H 135/68 H [Left Brachial artery] O2 Saturation 95 91 L 95 09/07/20 09/07/2009/07/21 17:00 18:00 18:19 Temperature 36.0 C L Heart Rate Heart Rate [ 123 H 100 Monitoring electrodes] Respiratory 24 25 H Rate Blood Pressure 105/62 Blood Pressure 115/70 105/62 [Left Brachial artery] O2 Saturation 88 L 94 09/07/20 09/07/20 09/07/20 19:00 20:00 21:00 Temperature 36.5 C Heart Rate Heart Rate [ 108 H 138 H 126 H Monitoring electrodes] Respiratory 21 22 15 Rate Blood Pressure Blood Pressure 93/65 117/96 H 117/77 [Left Brachial artery] O2 Saturation 93 94 92 09/07/20 09/07/20 09/07/20 21:24 22:27 23:00 Temperature Heart Rate Heart Rate [ 117 H 119 H Monitoring electrodes] Respiratory 27 H 16 Rate Blood Pressure 117/77 Blood Pressure 107/72 126/89 H [Left Brachial artery] O2 Saturation 90 L 95 09/08/20 09/08/20 09/08/20 00:03 00:15 01:00 Temperature 36.5 C Heart Rate Heart Rate [ 120 H 120 H Monitoring electrodes] Respiratory 22 22 Rate Blood Pressure 116/85 H Blood Pressure 116/85 H 113/67 [Left Brachial artery] O2 Saturation 95 91 L 09/08/20 09/08/20 09/08/20 02:00 03:00 03:10 Temperature Heart Rate Heart Rate [ 127 H 126 H 123 H Monitoring electrodes] Respiratory 14 25 H 24 Rate Blood Pressure Blood Pressure 92/67 87/57 L 106/72 [Left Brachial artery] O2 Saturation 92 95 95 09/08/20 09/08/20 09/08/20 04:00 04:45 05:00 Temperature 36.5 C Heart Rate Heart Rate [ 130 H 123 H Monitoring electrodes] Respiratory 24 14 Rate Blood Pressure 104/79 Blood Pressure 104/79 108/78 [Left Brachial artery] O2 Saturation 90 L 98 09/08/20 09/08/20 09/08/20 05:53 06:11 07:00 Temperature Heart Rate Heart Rate [ 127 H 124 H Monitoring electrodes] Respiratory 21 21 Rate Blood Pressure 108/78 Blood Pressure 110/87 H 101/66 [Left Brachial artery] O2 Saturation 97 97 09/08/20 09/08/20 09/08/20 08:00 09:00 10:00 Temperature 36.8 C Heart Rate Heart Rate [ 140 H 137 H 128 H Monitoring electrodes] Respiratory 20 25 H 23 Rate Blood Pressure Blood Pressure 104/70 106/72 105/78 [Left Brachial artery] O2 Saturation 98 96 100 09/08/20 09/08/20 09/08/20 10:30 11:00 11:30 Temperature Heart Rate 127 H Heart Rate [ 126 H 126 H Monitoring electrodes] Respiratory 22 252 H 24 Rate Blood Pressure Blood Pressure 89/74 L 111/73 [Left Brachial artery] O2 Saturation 100 99 09/08/20 11:34 Temperature 37 C Heart Rate Heart Rate [ 122 H Monitoring electrodes] Respiratory 24 Rate Blood Pressure Blood Pressure 117/69 [Left Brachial artery] O2 Saturation 100 Oxygen O2 Source Room air I&O (Last 24 Hrs): Intake and Output Totals x24h 09/06/20 09/07/20 09/08/20 23:59 23:59 23:59 Intake Total 2390 2700.000 1263.888 Output Total 1282 1755 500 Balance 1108 945.000 763.888 General: Alert, Oriented x3, Cooperative, No acute distress HEENT: Atraumatic, PERRLA Neck: Supple Lymphatic: no adenopathy Neuro: Alert, Non Focal, Oriented Times 3 Cardiovascular: Regular rate, Normal S1, Normal S2 Respiratory: Chest non-tender, No respiratory distress Abdomen: Normal bowel sounds, Soft Extremities: Normal pulses - Results Results: Laboratory Results WBC 11.0 x10^3/uL (4.8-10.8) H 09/08/20 04:46 RBC 5.06 10^6/uL (4.70-6.10) 09/08/20 04:46 Hgb 15.5 g/dL (14.0-18.0) 09/08/20 04:46 Hct 46.4 % (42.0-52.0) 09/08/20 04:46 MCV 91.7 fL (80.0-94.0) 09/08/20 04:46 MCH 30.6 pg (27.0-31.0) 09/08/20 04:46 MCHC 33.4 g/dL (32.0-36.0) 09/08/20 04:46 RDW 13.7 % (12.0-15.0) 09/08/20 04:46 Plt Count 137 10^3/uL (130-450) 09/08/20 04:46 MPV 13.1 fL (7.4-11.4) H 09/08/20 04:46 Neut # (Auto) 9.4 10^3/uL (1.5-6.6) H 09/08/20 04:46 Lymph # (Auto) 0.7 10^3/uL (1.5-3.5) L 09/08/20 04:46 [place] # (Auto) 0.8 10^3/uL (0.0-1.0) 09/08/20 04:46 Eos # (Auto) 0.0 10^3/uL (0.0-0.7) 09/08/20 04:46 Baso # (Auto) 0.0 10^3/uL (0.0-0.1) 09/08/20 04:46 Absolute Nucleated RBC 0.00 x10^3/uL 09/08/20 04:46 Total Counted 100 09/05/20 15:21 Band Neuts % (Manual) Not Reportable 09/06/20 06:35 Reactive Lymphs % (Man) 4 % 09/05/20 15:21 Abnorm Lymph % (Manual) Not Reportable 09/06/20 06:35 Nucleated RBC % 0.0 /100WBC 09/08/20 04:46 Neutrophils # (Manual) Not Reportable 09/06/20 06:35 Lymphocytes # (Manual) Not Reportable 09/06/20 06:35 Monocytes # (Manual) Not Reportable 09/06/20 06:35 Eosinophils # (Manual) Not Reportable 09/06/20 06:35 Basophils # (Manual) Not Reportable 09/06/20 06:35 Differential Comment MANUAL=AUTO DIFF 09/06/20 06:35 Manual Slide Review Indicated 09/06/20 06:35 WBC Morphology NORMAL APPEARANCE (NORMAL) 09/06/20 06:35 Platelet Estimate DECREASED (<130,000) (NORMAL) 09/06/20 06:35 Platelet Morphology NORMAL APPEARANCE (NORMAL) 09/06/20 06:35 RBC Morph Micro Appear NORMAL APPEARANCE (NORMAL) 09/06/20 06:35 ESR 18 mm/Hr (0-20) 09/05/20 15:21 D-Dimer 217.3 ng/mL (200.0-255.0) 09/05/20 15:21 VBG pH 7.414 (7.31-7.41) H 09/08/20 04:46 VBG pCO2 41.9 mmHg (41-51) 09/05/20 15:21 VBG pO2 25.2 mmHg (25-47) 09/05/20 15:21 VBG HCO3 23.1 mmol/L (23-28) 09/05/20 15:21 VBG Total CO2 24.4 mmol/L (24-29) 09/05/20 15:21 VBG O2 Saturation 48.4 % (60-80) L 09/05/20 15:21 VBG Base Excess -2.3 mmol/L (-2 - +2) L 09/05/20 15:21 Ionized Calcium 1.13 mmol/L (1.15-1.33) L 09/08/20 04:46 Sodium 138 mmol/L (135-145) 09/08/20 04:46 Potassium 4.1 mmol/L (3.5-5.0) 09/08/20 04:46 Chloride 108 mmol/L (101-111) 09/08/20 04:46 Carbon Dioxide 18 mmol/L (21-32) L 09/08/20 04:46 Anion Gap 12.0 (6-13) 09/08/20 04:46 BUN 38 mg/dL (6-20) H 09/08/20 04:46 Creatinine 1.3 mg/dL (0.6-1.2) H 09/08/20 04:46 Estimated GFR (MDRD) 53 (>89) L 09/08/20 04:46 Glucose 274 mg/dL (70-100) H 09/08/20 04:46 Calcium 8.4 mg/dL (8.5-10.3) L 09/08/20 04:46 Phosphorus 2.8 mg/dL (2.5-4.6) 09/08/20 04:46 Magnesium 2.3 mg/dL (1.7-2.8) 09/08/20 04:46 Total Bilirubin 1.3 mg/dL (0.2-1.0) H 09/05/20 15:21 AST 58 IU/L (10-42) H 09/05/20 15:21 ALT 32 IU/L (10-60) 09/05/20 15:21 Alkaline Phosphatase 36 IU/L (42-121) L 09/05/20 15:21 Troponin I High Sens 16.8 ng/L (2.3-19.7) 09/06/20 06:35 C-React Prot High Sens 92.8 mg/L 09/05/20 15:21 Total Protein 6.4 g/dL (6.7-8.2) L 09/05/20 15:21 Albumin 3.6 g/dL (3.2-5.5) 09/05/20 15:21 Globulin 2.8 g/dL (2.1-4.2) 09/05/20 15:21 Albumin/Globulin Ratio 1.3 (1.0-2.2) 09/05/20 15:21 Lipase 56 U/L (22-51) H 09/05/20 15:21 TSH 0.65 uIU/mL (0.34-5.60) 09/07/20 05:28 Nasal Screen MRSA (PCR) NEGATIVE (NEGATIVE) 09/05/20 17:42 ABX Reporting Has patient been on IV antibiotics over the past 48 hours?: Yes Current Medications - Current Medications Current Medications: Active Medications Acetaminophen (Acetaminophen 325 Mg Tablet) 650 mg PO Q4HR PRN PRN Reason: Pain 1 to 4 Last Admin: 09/08/20 09:05 Dose: 650 mg Documented by: Hydrocodone Bitart/Acetaminophen (Hydrocod/Acetam 5/325 Mg Tablet) 1 tab PO Q4H R PRN PRN Reason: Pain 5 to 7 Albuterol (Albuterol 1 Puff) 2 puffs INH Q4H PRN PRN Reason: Dyspnea Aspirin (Aspirin Ec 81 Mg Tablet) 81 mg PO Q24H [facility] Last Admin: 09/07/20 18:20 Dose: 81 mg Documented by: Dexamethasone (Dexamethasone 10 Mg/Ml Vial) 6 mg IVP DAILY [facility] Last Admin: 09/08/20 09:05 Dose: 6 mg Documented by: Digoxin (Digoxin 125 Mcg Tablet) 125 mcg PO DAILY [facility] Diltiazem HCl (Diltiazem 30 Mg Tablet) 60 mg PO Q6HR [facility] Last Admin: 09/08/20 05:53 Dose: 60 mg Documented by: Donepezil HCl (Donepezil 5 Mg Tablet) 5 mg PO QPM [facility] Last Admin: 09/07/20 20:12 Dose: 5 mg Documented by: Doxycycline Hyclate (Doxycycline 100 Mg Tablet) 100 mg PO BID [facility] Last Admin: 09/08/20 11:47 Dose: 100 mg Documented by: Finasteride (Finasteride 5 Mg Tablet) 5 mg PO DAILY [facility] Last Admin: 09/08/20 09:04 Dose: 5 mg Documented by: Remdesivir 100 mg/ Sodium (Chloride) 100 mls @ 200 mls/hr IV DAILY [facility] Stop: 09/09/20 09:29 Last Infusion: 09/08/20 09:40 Dose: Infused Documented by: Sodium Chloride (Normal Saline 0.9%) 1,000 mls @ 83.333 mls/hr IV .Q12H [facility] Stop: 09/08/20 19:59 Last Infusion: 09/08/20 11:52 Dose: 0 mls/hr Documented by: Ceftriaxone Sodium 2 gm/ (Sodium Chloride) 100 mls @ 200 mls/hr IV DAILY [facility] Last Admin: 09/08/20 11:47 Dose: 200 mls/hr Documented by: Insulin Aspart (Insulin Aspart 300 Unit/3 Ml Pen) 1 - 5 unit SUBQ 0800,1200,1700,2100 [facility]; Protocol Last Admin: 09/08/20 11:55 Dose: 4 unit Documented by: Metoprolol Tartrate (Metoprolol 5 Mg/5 Ml Vial) 7.5 mg IVP Q6H PRN PRN Reason: Tachycardia Ondansetron HCl (Ondansetron 4 Mg/2 Ml Vial) 4 mg IVP Q6HR PRN PRN Reason: Nausea / Vomiting Pantoprazole Sodium (Pantoprazole 40 Mg Tablet) 40 mg PO QDAC [facility] Last Admin: 09/08/20 05:59 Dose: 40 mg Documented by: Rivaroxaban (Rivaroxaban 10 Mg Tablet) 20 mg PO DAILYWM [facility] Last Admin: 09/08/20 09:04 Dose: 20 mg Documented by: Saccharomyces Boulardii (Saccharomyces Boulardii 250 Mg Capsule) 250 mg PO BIDWM [facility] Last Admin: 09/08/20 11:47 Dose: 250 mg Documented by: Sodium Chloride (Sodium Chloride Flush 0.9% 10 Ml Syringe) 10 ml IVP 0100,0900,1700 [facility] Last Admin: 09/08/20 09:19 Dose: 10 ml Documented by: Sodium Chloride (Sodium Chloride Flush 0.9% 10 Ml Syringe) 10 ml IVP PRN PRN PRN Reason: NEEDED PER PROVIDER ORDERS Last Admin: 09/08/20 04:45 Dose: 10 ml Documented by: Tamsulosin HCl (Tamsulosin 0.4 Mg Capsule) 0.4 mg PO DAILY [facility] Last Admin: 09/08/20 09:05 Dose: 0.4 mg Documented by: Aspirin EC [Ecotrin] 81 mg PO DAILY PM 09/03/20 Dofetilide [Tikosyn] 125 mcg PO BID 09/03/20 Donepezil [Aricept] 5 mg PO DAILY 09/03/20 Finasteride [Proscar] 5 mg PO DAILY 09/03/20 Lisinopril [Zestril] 10 mg PO DAILY 09/03/20 Rivaroxaban [Xarelto] 20 mg PO DAILY 09/03/20 Tamsulosin [Flomax] 0.4 mg PO DAILY 09/03/20 traMADol [Ultram] 50 mg PO TID PRN 09/03/20
[2020-09-08] MEDS: DIGOXIN 500 MCG/2 ML AMP IVP STA ×2 (12:32→15:53)
[2020-09-08] MEDS ORDERED: DIGOXIN 500 MCG/2 ML AMP IVP STA (15:56)
[2020-09-08] MEDS: ASPIRIN EC 81 MG TABLET PO SCH (17:51)
[2020-09-08] MEDS: DONEPEZIL 5 MG TABLET PO SCH (20:13)
[2020-09-09] MEDS: METOPROLOL 5 MG/5 ML VIAL IVP SCH ×4 (05:35→23:19)
[2020-09-09] MEDS: diltiaZEM 30 MG TABLET PO SCH ×4 (05:35→23:23)
[2020-09-09] MEDS: SODIUM CHLORIDE FLUSH 0.9% 10 ML SYRINGE IVP PRN ×2 (05:36→19:50)
[2020-09-09] MEDS: PANTOPRAZOLE 40 MG TABLET PO SCH (05:36)
[2020-09-09 06:06] LABS: CALCIUM, IONIZED 1.16 mmol/L (1.15-1.33); VBG PH 7.387 (7.31-7.41)
[2020-09-09 06:07] LABS: BASOPHILS % (AUTO) 0.1 %; HCT - HEMATOCRIT 43.7 % (42.0-52.0); HGB - HEMOGLOBIN 14.9 g/dL (14.0-18.0); LYMPHOCYTES # (AUTO) 0.5 10^3/uL (1.5-3.5); LYMPHOCYTES % (AUTO) 4.1 %; MEAN CORPUSCULAR HEMOGLOBIN 30.5 pg (27.0-31.0); MEAN CORPUSCULAR HGB CONC 34.1 g/dL (32.0-36.0); MEAN CORPUSCULAR VOLUME 89.5 fL (80.0-94.0); MEAN PLATELET VOLUME 12.8 fL (7.4-11.4); MONOCYTES # (AUTO) 0.8 10^3/uL (0.0-1.0); MONOCYTES % (AUTO) 6.5 %; NEUTROPHILS # (AUTO) 10.5 10^3/uL (1.5-6.6); NEUTROPHILS % (AUTO) 88.1 %; PLT - PLATELET COUNT 161 10^3/uL (130-450); RED BLOOD COUNT 4.88 10^6/uL (4.70-6.10); RED CELL DISTRIBUTION WIDTH 13.5 % (12.0-15.0); WHITE BLOOD COUNT 11.9 x10^3/uL (4.8-10.8)
[2020-09-09 06:16] LABS: DIGOXIN 0.2 ng/mL
[2020-09-09 06:18] LABS: CALCIUM 8.4 mg/dL (8.5-10.3); CREATININE 1.3 mg/dL (0.6-1.2); MAGNESIUM 2.3 mg/dL (1.7-2.8); PHOSPHORUS 3.2 mg/dL (2.5-4.6); POTASSIUM 4.6 mmol/L (3.5-5.0)
[2020-09-09] MEDS: INSULIN ASPART 300 UNIT/3 ML PEN SUBQ SCH ×4 (08:28→20:51)
[2020-09-09] MEDS ORDERED: DIGOXIN 125 MCG TABLET PO SCH (09:00)
[2020-09-09] MEDS: TAMSULOSIN 0.4 MG CAPSULE PO SCH (09:09)
[2020-09-09] MEDS: SACCHAROMYCES BOULARDII 250 MG CAPSULE PO SCH ×2 (09:09→17:45)
[2020-09-09] MEDS: FINASTERIDE 5 MG TABLET PO SCH (09:10)
[2020-09-09] MEDS: DOXYCYCLINE 100 MG TABLET PO SCH ×2 (09:10→20:50)
[2020-09-09] MEDS: RIVAROXABAN 10 MG TABLET PO SCH (09:10)
[2020-09-09] MEDS: DEXAMETHASONE 10 MG/ML VIAL IVP SCH (09:10)
[2020-09-09] MEDS: REMDESIVIR 100MG VIAL 100 MG in SODIUM CHLORIDE 0.9% 100ML 100 ML IV SCH (09:11)
[2020-09-09] MEDS ORDERED: DIGOXIN 500 MCG/2 ML AMP IVP STA (09:12)
[2020-09-09] MEDS ORDERED: AMIODARONE 200 MG TABLET PO SCH (11:00)
[2020-09-09 11:06] LABS: ESTIMATED AVERAGE GLUCOSE 143 mg/dL (70-100); HEMOGLOBIN A1c% 6.6 % (4.27-6.07)
[2020-09-09] MEDS: cefTRIAXone 2 GM in SODIUM CHLORIDE 0.9% MINIBAG 100 ML IV SCH (11:26)
[2020-09-09] MEDS: SODIUM CHLORIDE FLUSH 0.9% 10 ML SYRINGE IVP SCH ×3 (11:28→23:26)
--- NOTE | 2020-09-09 12:24 | PROVIDER PROGRESS NOTE ---
Subjective - Prog Note Date Prog Note Date: 09/09/20 - Subjective Pt reports feeling: Worse Subjective: Patient's fisher line Dr. Eamon Denny did call me back. updated pt's conditions to Dr. Denny. he recommended to have full dosage of beta-baljit to control patient A fibrillation with RVR, after pt's pulmonary status is more stable, pt may have cardiac conversion. He is willing to take care of pt at [facility]. I called [facility], they has no bed available, but communicate this afternoon to see if bad is available. Updated these information to pt. Patient declined to be transferred to other hospitals except [facility] to see his fisher line. Patient declined chest pain, palpitation. He reported he has more weakness on today. order Troponin which come back is 4.9, at normal arrange. Current Medications - Current Medications Current Medications: Active Medications Acetaminophen (Acetaminophen 325 Mg Tablet) 650 mg PO Q4HR PRN PRN Reason: Pain 1 to 4 Last Admin: 09/08/20 09:05 Dose: 650 mg Documented by: Hydrocodone Bitart/Acetaminophen (Hydrocod/Acetam 5/325 Mg Tablet) 1 tab PO Q4HR PRN PRN Reason: Pain 5 to 7 Albuterol (Albuterol 1 Puff) 2 puffs INH Q4H PRN PRN Reason: Dyspnea Aspirin (Aspirin Ec 81 Mg Tablet) 81 mg PO Q24H [facility] Last Admin: 09/08/20 17:51 Dose: 81 mg Documented by: Dexamethasone (Dexamethasone 10 Mg/Ml Vial) 6 mg IVP DAILY [facility] Last Admin: 09/09/20 09:10 Dose: 6 mg Documented by: Digoxin (Digoxin 125 Mcg Tablet) 125 mcg PO DAILY [facility] Last Admin: 09/09/20 09:09 Dose: 125 mcg Documented by: Diltiazem HCl (Diltiazem 30 Mg Tablet) 60 mg PO Q6HR [facility] Last Admin: 09/09/20 05:35 Dose: 60 mg Documented by: Donepezil HCl (Donepezil 5 Mg Tablet) 5 mg PO QPM [facility] Last Admin: 09/08/20 20:13 Dose: 5 mg Documented by: Doxycycline Hyclate (Doxycycline 100 Mg Tablet) 100 mg PO BID [facility] Last Admin: 09/09/20 09:10 Dose: 100 mg Documented by: Finasteride (Finasteride 5 Mg Tablet) 5 mg PO DAILY [facility] Last Admin: 09/09/20 09:10 Dose: 5 mg Documented by: Ceftriaxone Sodium 2 gm/ (Sodium Chloride) 100 mls @ 200 mls/hr IV DAILY [facility] Last Infusion: 09/09/20 12:05 Dose: Infused Documented by: Insulin Aspart (Insulin Aspart 300 Unit/3 Ml Pen) 2 - 10 unit SUBQ 0800,1200,1700,2100 [facility]; Protocol Last Admin: 09/09/20 12:04 Dose: 6 unit Documented by: Metoprolol Tartrate (Metoprolol 5 Mg/5 Ml Vial) 7.5 - 15 mg IVP Q6HR [facility] Last Admin: 09/09/20 11:29 Dose: 15 mg Documented by: Ondansetron HCl (Ondansetron 4 Mg/2 Ml Vial) 4 mg IVP Q6HR PRN PRN Reason: Nausea / Vomiting Pantoprazole Sodium (Pantoprazole 40 Mg Tablet) 40 mg PO QDAC [facility] Last Admin: 09/09/20 05:36 Dose: 40 mg Documented by: Rivaroxaban (Rivaroxaban 10 Mg Tablet) 20 mg PO DAILYWM [facility] Last Admin: 09/09/20 09:10 Dose: 20 mg Documented by: Saccharomyces Boulardii (Saccharomyces Boulardii 250 Mg Capsule) 250 mg PO BIDWM [facility] Last Admin: 09/09/20 09:09 Dose: 250 mg Documented by: Sodium Chloride (Sodium Chloride Flush 0.9% 10 Ml Syringe) 10 ml IVP 0100,0900,1700 [facility] Last Admin: 09/09/20 11:28 Dose: 10 ml Documented by: Sodium Chloride (Sodium Chloride Flush 0.9% 10 Ml Syringe) 10 ml IVP PRN PRN PRN Reason: NEEDED PER PROVIDER ORDERS Last Admin: 09/09/20 05:36 Dose: 10 ml Documented by: Tamsulosin HCl (Tamsulosin 0.4 Mg Capsule) 0.4 mg PO DAILY [facility] Last Admin: 09/09/20 09:09 Dose: 0.4 mg Documented by: Aspirin EC [Ecotrin] 81 mg PO DAILY PM 09/03/20 Dofetilide [Tikosyn] 125 mcg PO BID 09/03/20 Donepezil [Aricept] 5 mg PO DAILY 09/03/20 Finasteride [Proscar] 5 mg PO DAILY 09/03/20 Lisinopril [Zestril] 10 mg PO DAILY 09/03/20 Rivaroxaban [Xarelto] 20 mg PO DAILY 09/03/20 Tamsulosin [Flomax] 0.4 mg PO DAILY 09/03/20 traMADol [Ultram] 50 mg PO TID PRN 09/03/20 Objective - Vital Signs/Intake & Output Vital Signs: Vital Signs x48h Temp Pulse Pulse Resp BP BP Pulse Ox 09/09/20 11:29 105/90 H 09/09/20 11:00 147 H 24 107/79 09/09/20 10:00 150 H 20 105/81 H 96 09/09/20 09:27 147 H 09/09/20 09:00 150 H 19 93/60 94 09/09/20 08:43 36.9 C 140 H 17 101/60 91 L 09/09/20 08:00 133 H 24 109/93 H 88 L 09/09/20 07:00 118 H 28 H 92/79 94 09/09/20 06:00 132 H 22 111/78 98 09/09/20 05:35 114/82 H 09/09/20 05:30 36.6 C 142 H 21 114/82 H 97 09/09/20 04:00 140 H 22 99/70 93 Intake & Output: Intake & Output 09/06/20 09/07/20 09/08/20 09/09/20 23:59 23:59 23:59 23:59 Intake Total 2390 2700.000 2413.888 1310 Output Total 1282 1755 975 247 Balance 1108 099.246 8138.888 1063 - Objective General Appearance: positive: Alert, Mild distress. negative: Lethargic Eyes Bilateral: positive: Normal inspection, PERRL, No lid inflammation ENT: positive: ENT inspection nml, No signs of dehydration. negative: Purulent nasal drainage Neck: positive: Nml inspection, Trachea midline. negative: Thyromegaly, Tracheal deviation Respiratory: positive: Chest non-tender, No respiratory distress Cardiovascular: positive: Regular rate & rhythm, No murmur, Tachycardia. negative: Bradycardia, Systolic murmur Peripheral Pulses: 2+ Radial (R), 2+ Radial (L) Abdomen: positive: Non-tender, Nml bowel sounds, No distention. negative: Tenderness Back: positive: Nml inspection Skin: positive: Color nml, Warm, Dry. negative: Cyanosis Extremities: positive: Non-tender, Nml appearance. negative: Calf tenderness Neurologic/Psychiatric: positive: Oriented x3, Sensation nml, Mood/affect nml. negative: Weakness, Sensory loss, Facial droop, Slurred/abnml speech - Lab Results Fish Bones: 09/09/20 05:50 09/09/20 05:50 Other Labs: Lab Results x24hrs 09/09/20 09/09/20 09/09/20 Range/Units 10:10 05:50 05:50 WBC (4.8-10.8) x10^3/uL RBC (4.70-6.10) 10^6/uL Hgb (14.0-18.0) g/dL Hct (42.0-52.0) % MCV (80.0-94.0) fL MCH (27.0-31.0) pg MCHC (32.0-36.0) g/dL RDW (12.0-15.0) % Plt Count (130-450) 10^3/uL MPV (7.4-11.4) fL Neut # (Auto) (1.5-6.6) 10^3/uL Lymph # (Auto) (1.5-3.5) 10^3/uL Clark # (Auto) (0.0-1.0) 10^3/uL Eos # (Auto) (0.0-0.7) 10^3/uL Baso # (Auto) (0.0-0.1) 10^3/uL Absolute Nucleated RBC x10^3/uL Nucleated RBC % /100WBC VBG pH (7.31-7.41) Ionized Calcium (1.15-1.33) mmol/L Sodium (135-145) mmol/L Potassium (3.5-5.0) mmol/L Chloride (101-111) mmol/L Carbon Dioxide (21-32) mmol/L Anion Gap (6-13) BUN (6-20) mg/dL Creatinine (0.6-1.2) mg/dL Estimated GFR (MDRD) (>89) Glucose (70-100) mg/dL Estimat Average Glucose 143 H (70-100) mg/dL Hemoglobin A1c % 6.6 H (4.27-6.07) % Calcium (8.5-10.3) mg/dL Phosphorus (2.5-4.6) mg/dL Magnesium (1.7-2.8) mg/dL Troponin I High Sens 4.9 (2.3-19.7) ng/L Last Dose Date 09-08-20 Last Dose Time 0900 Digoxin 0.2 ng/mL 09/09/20 09/09/20 09/09/20 Range/Units 05:50 05:50 05:50 WBC 11.9 H (4.8-10.8) x10^3/uL RBC 4.88 (4.70-6.10) 10^6/uL Hgb 14.9 (14.0-18.0) g/dL Hct 43.7 (42.0-52.0) % MCV 89.5 (80.0-94.0) fL MCH 30.5 (27.0-31.0) pg MCHC 34.1 (32.0-36.0) g/dL RDW 13.5 (12.0-15.0) % Plt Count 161 (130-450) 10^3/uL MPV 12.8 H (7.4-11.4) fL Neut # (Auto) 10.5 H (1.5-6.6) 10^3/uL Lymph # (Auto) 0.5 L (1.5-3.5) 10^3/uL Clark # (Auto) 0.8 (0.0-1.0) 10^3/uL Eos # (Auto) 0.0 (0.0-0.7) 10^3/uL Baso # (Auto) 0.0 (0.0-0.1) 10^3/uL Absolute Nucleated RBC 0.00 x10^3/uL Nucleated RBC % 0.0 /100WBC VBG pH 7.387 (7.31-7.41) Ionized Calcium 1.16 (1.15-1.33) mmol/L Sodium 138 (135-145) mmol/L Potassium 4.6 (3.5-5.0) mmol/L Chloride 111 (101-111) mmol/L Carbon Dioxide 19 L (21-32) mmol/L Anion Gap 8.0 (6-13) BUN 35 H (6-20) mg/dL Creatinine 1.3 H (0.6-1.2) mg/dL Estimated GFR (MDRD) 53 L (>89) Glucose 252 H (70-100) mg/dL Estimat Average Glucose (70-100) mg/dL Hemoglobin A1c % (4.27-6.07) % Calcium 8.4 L (8.5-10.3) mg/dL Phosphorus 3.2 (2.5-4.6) mg/dL Magnesium 2.3 (1.7-2.8) mg/dL Troponin I High Sens (2.3-19.7) ng/L Last Dose Date Last Dose Time Digoxin ng/mL ABX Reporting Has patient been on IV antibiotics over the past 48 hours?: Yes Assessment/Plan - Problem List (1) Atrial fibrillation with rapid ventricular response Impression: 09/09 pt's heart rate is up to 150 but pt is asymptomatic, he denies chest pain or palpitation. per pt's fisher line's recommendation, and Uptodate's recommendat ion, order 7.5 mg IV twice with interval 5 minutes, order digonix 250 mcg IV, continue schedule Metoprolol and Cardizem, continue Xarelto. It appears working. pt's HR is down to 100-130 and pt tolerated it. continue tele monitor, david monitor heart rate is still not under of control. new EKG done on today show increased QTC from 516 to 548. pt was started on Tikosyn from last night. we will hold Tikosyn, add Digonix and check serum dignoxin, PRN metoprolol, continue scheduled Cardizem. ECHO show pt had normal EF. Continue on Xarelto, Continue telemetry (2) COVID-19 Assessment/Plan: 09/09 slight worsening. pt need 5 liter of O2 and had 94% O2 sats. continue finish the covid 19 treatment course, and antibiotics. pt still had slight elevated WBC. Supplement oxygen as needed. Continue vital signs closely monitor. 09/08 Patient had a 100% sats on 4 L oxygen, patient has no acute respiratory distress, We will gradually wean/reduce oxygen supplement As patient tolerated. continue remdesivir and Decadron 6 mg IV daily ordered And he will finish the treatment course, Continue Xarelto as patient home medication pt has elevated WBC, CXR reveal atypical pneumonia, add antibiotics and probiotics for possible bacterial pneumonia (3) Acute respiratory failure with hypoxia Assessment/Plan: 09/09, slight worsening. Patient need more oxygen for support. continue finish the covid 19 treatment course, and antibiotics. improved slightly but pt is still on O2, continue the treatment of Covid 19 and possible bacterial pneumonia Albuterol every 4 hours as needed. 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 daily. (6) BPH (benign prostatic hyperplasia) Assessment/Plan: On tamsulosin and finasteride. (7) Elevated troponin Assessment/Plan: 09/09 Troponin now is down to the normal range, 4.9. pt denies chest pain. Likely demand ischemia from tachycardia related to atrial fibrillation with rapid ventricular rhythm. Troponin trend was 22.8 . 16.5 > 16.8
[2020-09-09] MEDS: ASPIRIN EC 81 MG TABLET PO SCH (17:45)
[2020-09-09] MEDS: DONEPEZIL 5 MG TABLET PO SCH (20:50)
--- NOTE | 2020-09-09 21:41 | DISCHARGE SUMMARY ---
Discharge Summary Admit Date: 09/05/20 Discharge Date: 09/09/20 Discharging Provider: Edinson Garcia Primary Care Provider: Logan Ramey Discharge Facility Name: [facility] in [place] - DIAGNOSES Discharge Diagnoses with Status of Each Condition: (1) Atrial fibrillation with rapid ventricular response HR is still not controlled yet, now HR is 126 but improved from admission HR was 150. pt was ordered Tikosyn of his home meds, IV scheduled Metoprolol, scheduled oral Cardizem, and IV of Digoxin. pt's home Xarelto was resumed. Tikosyn increased QTC, then it was hold. Pt had ECHO study which showed normal arrange EF. Pt request to call his material checker. we did call and consult with Dr. Denny. kindly accepted pt in his hospital to take care of. Hospital ist Dr. Weiss accepted pt as well. Appreciate both continue to care of this pt. (2) COVID-19 Worsening. pt had 91% sat on 5 liter of O2. pt received Covid 19 treatment in h ospital including Remdesevir, Decatron, Lovenox, and add antibiotics Doxycycle and Rocephin because elevated WBC and worsening pulmonary condition. Report to Hospitalist Dr. Weiss, she accepted pt for high level of care. (3) Acute respiratory failure with hypoxia worsening. secondary to Covid 19 infection. (4) CKD stable (5) Dementia stable. pt is alert and oriented. On Aricept 5 mg p.o. daily. (6) BPH (benign prostatic hyperplasia) stable. (7) Elevated troponin resolved. Troponin is at normal arrange now. - HPI History of Present Illness: refer from Dr. Perez's HPI on 09/05/20 Patient is a 79-year-old male with medical history significant for atrial fibrillation on Tikosyn and Xarelto, BPH, mild dementia, chronic back pain and hypertension who was brought to the ED with weakness, hypoxia and dyspnea. He was diagnosed with Covid 1 week ago. He had the [employer] Covid vaccine in April 2020. He has been getting progressively weak over this past week and dyspneic. 2 days ago his had called for a lift assist. EMS picked him up from the floor where he had laid and could not get up due to the weakness and placed him in a chair. He stayed in the chair for more than 24 hours due to the weakness. He was incontinent of urine and stool in that time. His is very weak because she is also positive for Covid and was unable to help him today so she again called EMS. He was noted to have an oxygen saturation of 85% on room air. In the ED his oxygen saturation was again noted to be 85% on room air. With 4 L of oxygen via nasal canula, his oxygen saturation improved to the low 90s. He was also noted to be in rapid ventricular rhythm with heart rate as high as 150. He was afebrile and had normal white blood cell count. He was slightly dehydrated with a creatinine of 1.4. At bedside he was resting comfortably. He has significant crackles bilaterally. He denied chest pain, abdominal pain, nausea, vomiting, fever or chills. He is being admitted for further management. - HOSPITAL COURSE Hospital Course: pt was admitted for hypoxia 85% O2 sats on room air with Covid 19 positive and uncontrolled Afib with RVR at HR 150. pt received Covid 19 treatment in hospital. pt also received antibiotics for two days now because elevated WBC and worsening pulmonary condition. Although pt was received Metoprolol, Tykosyn, Cardizem and digoxin treatment, but his HR is still not controlled. Pt's material checker was called and consulted. He is wiling to take care of pt at his hospital. Covid 19 conditions became worsening. pt was accepted for high level care in [facility]. - ALLERGIES Allergies/Adverse Reactions: Allergies Allergy/AdvReac Type Severity Reaction Status Date / Time No Known Drug Allergies Allergy Verified 09/05/20 15:11 - MEDICATIONS Home Medications: Ambulatory Orders Medication Instructions Recorded Confirmed Aspirin EC [Ecotrin] 81 mg PO DAILY PM 09/03/20 09/05/20 Dofetilide [Tikosyn] 125 mcg PO BID 09/03/20 09/05/20 Donepezil [Aricept] 5 mg PO DAILY 09/03/20 09/05/20 Finasteride [Proscar] 5 mg PO DAILY 09/03/20 09/05/20 Lisinopril [Zestril] 10 mg PO DAILY 09/03/20 09/05/20 Rivaroxaban [Xarelto] 20 mg PO DAILY 09/03/20 09/05/20 Tamsulosin [Flomax] 0.4 mg PO DAILY 09/03/20 09/05/20 traMADol [Ultram] 50 mg PO TID PRN 09/03/20 09/05/20 - PHYSICAL EXAM AT DISCHARGE General Appearance: positive: Alert, Mild distress. negative: Lethargic Eyes Bilateral: positive: Normal inspection, PERRL, No lid inflammation ENT: positive: ENT inspection nml, No signs of dehydration. negative: Purulent nasal drainage Neck: positive: Nml inspection, Trachea midline. negative: Thyromegaly, Trac heal deviation Respiratory: positive: Chest non-tender, Rales, Other (pt show mild respiratory distress) Cardiovascular: positive: Regular rate & rhythm, No murmur, Tachycardia. negative: Bradycardia, Systolic murmur Peripheral Pulses: positive: 2+ Abdomen: positive: Non-tender, Nml bowel sounds, No distention. negative: Tenderness Back: positive: Nml inspection Skin: positive: Color nml, Warm, Dry. negative: Cyanosis Extremities: positive: Non-tender, Nml appearance. negative: Calf tenderness Neurologic/Psychiatric: positive: Oriented x3, Sensation nml, Mood/affect nml. negative: Weakness, Sensory loss, Facial droop, Slurred/abnml speech, Depressed mood/affect - LABS Result Diagrams: 09/09/20 05:50 09/09/20 05:50 - FOLLOW UP Follow Up: pt was accepted by [facility] for high level of care. - TIME SPENT Time Spent in Discharge (Minutes): 30
[2020-09-10 00:03] VITALS: BP 139/115
== END 2020-09-10 01:00 | disposition short-term general hospital (02) | DRG 177 ==
LOC: EDUNIT# → ED 14:50 → ICU 16:25
PROVIDERS: ADMIT Internal Medicine; ATTEND Nurse Practitioner Gerontology
PROC: 3E0333Z Introduction of Anti-inflammatory into Peripheral Vein, Percutaneous Approach (ICD-10-PCS; principal; 2020-09-06)
PROC: XW033E5 Introduction of Remdesivir Anti-infective into Peripheral Vein, Percutaneous Approach, New Technology Group 5 (ICD-10-PCS; 2020-09-06)
DX: U07.1 COVID-19 (principal); R06.02 Shortness of breath; R53.1 Weakness; J96.01 Acute respiratory failure with hypoxia; J12.82 Pneumonia due to coronavirus disease 2019; J15.9 Unspecified bacterial pneumonia; N17.9 Acute kidney failure, unspecified; I24.8 Other forms of acute ischemic heart disease; I48.91 Unspecified atrial fibrillation; I12.9 Hypertensive chronic kidney disease with stage 1 through stage 4 chronic kidney disease, or unspecified chronic kidney disease; N18.9 Chronic kidney disease, unspecified; E86.0 Dehydration; R19.7 Diarrhea, unspecified; N40.0 Benign prostatic hyperplasia without lower urinary tract symptoms; F03.90 Unspecified dementia, unspecified severity, without behavioral disturbance, psychotic disturbance, mood disturbance, and anxiety; G89.29 Other chronic pain; M54.9 Dorsalgia, unspecified; Z66 Do not resuscitate; Z79.82 Long term (current) use of aspirin; Z79.01 Long term (current) use of anticoagulants; Z79.899 Other long term (current) drug therapy
CPT/HCPCS: 36415; 71045; 80048; 80053; 80162; 82330; 82803; 83036; 83690; 83735; 84100; 84443; 84484; 85025; 85379; 85651; 86141; 87150; 93005; 93306; 99283; 99285; A9270; C9399

== ENCOUNTER 2021-04-24 08:00 | Outpatient (CLI) | payer MEDICARE, OTHER | END 2021-04-24 23:59 | disposition home or self-care (01) | LOC: LAB.N 08:00 | PROVIDERS: ATTEND Nurse Practitioner | DX: R36.9 Urethral discharge, unspecified (principal) | CPT/HCPCS: 87070; 87086; 87205 ==

== ENCOUNTER 2021-04-24 18:22 | Emergency (ER) | payer MEDICARE, OTHER ==
--- OUTSIDE RECORDS SUMMARY | 2021-04-24 18:42 | EXTERNAL MEDICAL SUMMARY RPT | Continuity of Care Document ---
:1940 Author Organization [facility] Address [address] [place] [address] Phone Care Team Providers Name Role Phone Desch Unavailable Unavailable Allergies No information. Encounters No information. Medications date description facility 20210412 Amiodarone hydrochloride 200 MG Oral [facility] Problems Procedures date description facility [id number] [facility] Results No information. Vital Signs date measurement value source 20210412 weight_standard 111.13 lb 20210412 weight_metric 50.41 kg 20210412 temperature_standard 98.1 F 20210412 temperature_metric 36.72 C 20210412 respiration_rate 16 /min 20210412 height_standard 70 in 20210412 height_metric 177.8 cm 20210412 heart_rate 82 /min 20210412 BP_systolic 134 mm[Hg] 20210412 BP_diastolic 87 mm[Hg] 20210412 BMI 35.2 kg/m2
--- NOTE | 2021-04-24 18:47 | ED Physician Documentation ---
History of Present Illness - Stated complaint Stated Complaint: CATH NOT DRAINING - Chief complaint Chief Complaint: General - Additonal information Additional information: 80-year-old male presents the emergency department for evaluation of Leo catheter malfunction. He has had a Leo catheter in since early April. He is followed by Jennifer Light with urology services through [facility]. Patient states that when he woke up this morning his he drained his Leo catheter bag but since this a.m. nothing has drained. He has become increasingly uncomfortable and distended in the abdomen. He did go to a local walk-in clinic where they diagnosed him with a urinary tract infection and wrote a prescription for Cipro. He was told that if he did not improve to come to the emergency department. No fevers or vomiting. He is scheduled for prostate evaluation in the upcoming few weeks. Patient does have a history of atrial fibrillation. He is anticoagulated on Xarelto. Denies any recent fevers. But does feel generally chronic PD PAST MEDICAL HISTORY - Past Medical History Cardiovascular: Hypertension, Atrial fibrillation Neuro: Dementia (mild), Other (Hx of hydrocephalus s/p shunt placement, then removal 2 weeks later due to infection) Musculoskeletal: Chronic back pain - Past Surgical History Neuro: INSPECTOR CIRCUITRY NEGATIVE shunt - Present Medications Home Medications: Ambulatory Orders Medication Instructions Recorded Confirmed Aspirin EC [Ecotrin] 81 mg PO DAILY PM 09/03/20 04/24/21 Dofetilide [Tikosyn] 125 mcg PO BID 09/03/20 09/05/20 Donepezil [Aricept] 5 mg PO DAILY 09/03/20 09/05/20 Finasteride [Proscar] 5 mg PO DAILY 09/03/20 04/24/21 Lisinopril [Zestril] 10 mg PO DAILY 09/03/20 04/24/21 Rivaroxaban [Xarelto] 20 mg PO DAILY 09/03/20 04/24/21 Tamsulosin [Flomax] 0.8 mg PO DAILY PM 09/03/20 04/24/21 traMADol [Ultram] 50 mg PO TID PRN 09/03/20 04/24/21 Ciprofloxacin HCl [Cipro] 500 mg ORAL BID 04/24/21 04/24/21 Cyanocobalamin (Vitamin B-12) 2,500 mcg SL DAILY 04/24/21 04/24/21 [Vitamin B-12] Dextrose [Glucose] 4 gm PO PRN PRN 04/24/21 04/24/21 Furosemide [Lasix] 40 mg PO BID 04/24/21 04/24/21 Glucagon [Gvoke] 1 mg SQ PRN PRN 04/24/21 04/24/21 Insulin Glargine [Lantus Solostar] 10 unit SQ HS 04/24/21 04/24/21 Metoprolol Tartrate [Lopressor] 25 mg PO DAILY 04/24/21 04/24/21 Pantoprazole [Protonix] 40 mg PO DAILY 04/24/21 04/24/21 metFORMIN [Glucophage] 500 mg PO BIDWM 04/24/21 04/24/21 - Allergies Allergies/Adverse Reactions: Allergies Allergy/AdvReac Type Severity Reaction Status Date / Time No Known Drug Allergies Allergy Verified 04/24/21 18:28 - Social History Does the pt smoke?: No Smoking Status: Never smoker - POLST POLST Status: DNR PD ED PE EXPANDED - General General: Alert, In Pain - Cardiac Cardiac: Irregularly irregular, Radial strong equal, Pedal strong equal, Cap refill < 2 sec - Respiratory Respiratory: Clear to ausultation nancy. No: Distress, Labored - Abdomen Abdomen: Distended (Palpably distended bladder tender on exam), Tender to palpation - Male Male : Other (goley catheter not draining) - Derm Derm: Normal color, Warm and dry. No: Rash - Neuro Neuro: Alert and Oriented X 3. No: Confused, Disoriented - GCS Eye Opening: Spontaneous Motor: Obeys Commands Verbal: Oriented Total: 15 Results - Vitals Vitals: Vital Signs - 24 hr 04/24/21 04/24/21 18:28 19:29 Temperature 36.3 C L Heart Rate 90 119 H Respiratory 20 28 H Rate Blood Pressure 180/111 H 177/106 H O2 Saturation 96 97 Oxygen O2 Source Room air - Labs Labs: Laboratory Tests 04/24/21 04/24/21 04/24/21 19:11 19:11 19:25 WBC 10.7 RBC 5.36 Hgb 16.1 Hct 47.8 MCV 89.2 MCH 30.0 MCHC 33.7 RDW 15.3 H Plt Count 147 MPV 11.4 Neut # (Auto) 9.0 H Lymph # (Auto) 0.8 L [place] # (Auto) 0.7 Eos # (Auto) 0.0 Baso # (Auto) 0.1 Absolute Nucleated RBC 0.00 Nucleated RBC % 0.0 Sodium 141 Potassium 3.9 Chloride 108 Carbon Dioxide 21 Anion Gap 12.0 BUN 23 H Creatinine 1.6 H Estimated GFR (MDRD) 42 L Glucose 154 H Calcium 9.4 Total Bilirubin 1.1 H AST 17 ALT 15 Alkaline Phosphatase 54 Total Protein 7.1 Albumin 4.3 Globulin 2.8 Albumin/Globulin Ratio 1.5 Lipase 29 Urine Color RED/BLOODY Urine Clarity BLOODY Urine pH 7.5 Ur Specific [place] 1.020 Urine Protein >=300 H Urine Glucose (UA) NEGATIVE Urine Ketones TRACE Urine Occult Blood LARGE H Urine Nitrite POSITIVE H Urine Bilirubin NEGATIVE Urine Urobilinogen 0.2 (NORMAL) Ur Leukocyte Esterase TRACE H Urine RBC TNTC H Urine WBC 6-10 H Ur Squamous Epith Cells NONE SEEN Urine Bacteria Moderate H Ur Microscopic Review INDICATED Urine Culture Comments INDICATED PD MEDICAL DECISION MAKING - ED course Complexity details: reviewed results, re-evaluated patient, d/w patient ED course: 80-year-old male who has a history of atrial fibrillation on Xarelto presents to the emergency department for a Leo catheter that is not draining. He has had very little Leo/urine output since this a.m. He did go to a local walk-in clinic where he was diagnosed with a UTI and started on Cipro. However due to increasing lower abdominal distention and pain he presents to the ER. Initially he is quite uncomfortable somewhat tacky with an atrial fib rate in the 130s. Bladder scan revealed approximately 650 mils of urine. His catheter was exchanged and about 700 mils of fluid rapidly drained. Screening labs showed no leukocytosis his urine is consistent with infection. He does have some mildly worse kidney injury. Patient was given 1 L of fluid as well as ceftriaxone here in the emergency department. Following replacement of the Leo he is markedly improved. He will continue with the Cipro prescribed by the walk-in clinic. Otherwise will follow up with Dr. Skinner in follow-up. Emergent return precautions otherwise discussed. Departure - Departure Disposition: 01 Home, Self Care Clinical Impression: GREG (acute kidney injury) Leo catheter problem Qualifiers: Encounter type: initial encounter Qualified Code(s): T83.9XXA - Unspecified complication of genitourinary prosthetic device, implant and graft, initial encounter UTI (urinary tract infection) Qualifiers: Urinary tract infection type: catheter-associated UTI Indwelling urinary catheter type: indwelling urethral catheter Encounter type: initial encounter Qualified Code(s): T83.511A - Infection and inflammatory reaction due to indwelling urethral catheter, initial encounter Condition: Stable Record reviewed to determine appropriate education?: Yes Follow-Up: Jennifer Skinner MD [Physician No Access] - Comments: Alf you were seen today in the emergency department because your Leo catheter failed to drain. We were able to exchange the catheter here in the emergency department. Please continue to follow-up with Dr. Light for long-term management of your urinary retention and prostate issues. Continue to take all your other prescribed medications . You do have a urinary tract infection. The walk-in clinic diagnosed you with 1 and started you on Cipro. Please continue to take this antibiotic until complete. If at any point you find that your symptoms worsen, your catheter fails to drain for 8 or more hours or you develop fevers and abdominal pain then please return immediately to the ER for second evaluation.
[2021-04-24 19:17] LABS: BASOPHILS # (AUTO) 0.1 10^3/uL (0.0-0.1); BASOPHILS % (AUTO) 0.5 %; EOSINOPHILS % (AUTO) 0.2 %; HCT - HEMATOCRIT 47.8 % (42.0-52.0); HGB - HEMOGLOBIN 16.1 g/dL (14.0-18.0); LYMPHOCYTES # (AUTO) 0.8 10^3/uL (1.5-3.5); LYMPHOCYTES % (AUTO) 7.7 %; MEAN CORPUSCULAR HGB CONC 33.7 g/dL (32.0-36.0); MEAN CORPUSCULAR VOLUME 89.2 fL (80.0-94.0); MEAN PLATELET VOLUME 11.4 fL (7.4-11.4); MONOCYTES # (AUTO) 0.7 10^3/uL (0.0-1.0); MONOCYTES % (AUTO) 6.8 %; NEUTROPHILS % (AUTO) 84.3 %; PLT - PLATELET COUNT 147 10^3/uL (130-450); RED BLOOD COUNT 5.36 10^6/uL (4.70-6.10); RED CELL DISTRIBUTION WIDTH 15.3 % (12.0-15.0); WHITE BLOOD COUNT 10.7 x10^3/uL (4.8-10.8)
[2021-04-24 19:33] LABS: ALBUMIN 4.3 g/dL (3.2-5.5); ALBUMIN/GLOBULIN RATIO 1.5 (1.0-2.2); BILIRUBIN,TOTAL 1.1 mg/dL (0.2-1.0); CALCIUM 9.4 mg/dL (8.5-10.3); CREATININE 1.6 mg/dL (0.6-1.2); POTASSIUM 3.9 mmol/L (3.5-5.0); TOTAL PROTEIN 7.1 g/dL (6.7-8.2)
[2021-04-24 19:34] LABS: BILIRUBIN,URINE NEGATIVE (NEGATIVE); GLUCOSE, URINE (UA) NEGATIVE (NEGATIVE); KETONES,URINE (UA) TRACE mg/dL (NEGATIVE); LEUKOCYTE ESTERASE, URINE TRACE (NEGATIVE); NITRITE,URINE POSITIVE (NEGATIVE); OCCULT BLOOD,URINE LARGE (NEGATIVE); PH,URINE 7.5 PH (5.0-7.5); PROTEIN,URINE >=300 mg/dL (NEGATIVE); UROBILINOGEN,URINE 0.2 (NORMAL) E.U./dL (NORMAL)
[2021-04-24 19:37] LABS: CLARITY,URINE BLOODY (CLEAR)
[2021-04-24] MEDS ORDERED: SODIUM CHLORIDE 0.9% 1,000 ML IV STA (19:41)
[2021-04-24 19:45] LABS: RBC,URINE TNTC /HPF (0-5)
[2021-04-24 19:46] LABS: BACTERIA,URINE Moderate /HPF (None Seen); SQUAMOUS EPITHELIAL CELL,UR NONE SEEN (<= Few)
[2021-04-24] MEDS ORDERED: cefTRIAXone 1 GM VIAL IVP STA (19:47)
[2021-04-24 21:21] VITALS: BP 139/86
== END 2021-04-24 21:21 | disposition home or self-care (01) ==
LOC: ED 18:22
DX: T83.511A Infection and inflammatory reaction due to indwelling urethral catheter, initial encounter (principal); N39.0 Urinary tract infection, site not specified; T83.091A Other mechanical complication of indwelling urethral catheter, initial encounter; I48.91 Unspecified atrial fibrillation; Z79.01 Long term (current) use of anticoagulants; R36.9 Urethral discharge, unspecified
CPT/HCPCS: 36415; 51702; 80053; 81001; 81003; 83690; 85025; 87070; 87077; 87086; 87181; 87205; 99283

== ENCOUNTER 2021-06-22 17:03 | Outpatient (CLI) | payer MEDICARE, OTHER | END 2021-06-22 17:04 | disposition critical access hospital (66) | LOC: EMS 17:03 | DX: R53.1 Weakness (principal) | CPT/HCPCS: A0425; A0429 ==

== ENCOUNTER 2021-06-22 17:28 | Emergency (ER) | payer MEDICARE, OTHER ==
--- OUTSIDE RECORDS SUMMARY | 2021-06-22 17:41 | EXTERNAL MEDICAL SUMMARY RPT | Continuity of Care Document ---
:1940 Author Organization [facility] Address [address] [place] [address] Phone Care Team Providers Name Role Phone Desch Unavailable Unavailable Allergies No information. Encounters No information. Medications date description facility [id number] Amiodarone hydrochloride 200 MG Oral Ta [facility] Problems date description facility [id number] Other [facility] Procedures date description facility [id number] [facility] [id number] [facility] [id number] [facility] Results No information. Vital Signs date measurement value source [id number] weight_standard 111.13 lb 20210412 weight_metric 50.41 kg 20210412 temperature_standard 98.1 F 20210412 temperature_metric 36.72 C 20210412 respiration_rate 16 /min 20210412 height_standard 70 in 20210412 height_metric 177.8 cm 20210412 heart_rate 82 /min 20210412 BP_systolic 134 mm[Hg] 20210412 BP_diastolic 87 mm[Hg] 20210412 BMI 35.2 kg/m2
--- NOTE | 2021-06-22 18:06 | ED Physician Documentation ---
History of Present Illness - Stated complaint Stated Complaint: WEAKNESS - Chief complaint Chief Complaint: General - History obtained from History obtained from: Patient - Additonal information Additional information: 80-year-old gentleman with history of indwelling catheter and atrial fibrillation became very weak today. To some extent he has been weak ever since a prolonged admission with residential stay for COVID last year. But he was doing okay and today he was on the toilet and his son called him and told him that he was COVID-positive. He has no symptoms of COVID but he was suddenly weak and could not get off the toilet. He denies pain. No fevers. No chills. No chest pain or trouble breathing. No abdominal complaints. Review of Systems Ten Systems: 10 systems reviewed and negative Constitutional: reports: Fatigue Nose: denies: Rhinorrhea / runny nose, Congestion Cardiac: denies: Chest pain / pressure, Palpitations Respiratory: denies: Dyspnea, Cough GI: denies: Abdominal Pain PD PAST MEDICAL HISTORY - Past Medical History Cardiovascular: Hypertension, Atrial fibrillation Respiratory: None Neuro: Dementia (mild), Other (Hx of hydrocephalus s/p shunt placement, then removal 2 weeks later due to infection) Endocrine/Autoimmune: Type 2 diabetes Musculoskeletal: Chronic back pain - Past Surgical History Neuro: ORCHARD SPRAYER shunt - Present Medications Home Medications: Ambulatory Orders Medication Instructions Recorded Confirmed Finasteride [Proscar] 5 mg PO DAILY 09/03/20 06/22/21 Lisinopril [Zestril] 10 mg PO DAILY 09/03/20 06/22/21 Rivaroxaban [Xarelto] 20 mg PO DAILY 09/03/20 06/22/21 Tamsulosin [Flomax] 0.8 mg PO DAILY PM 09/03/20 06/22/21 Cyanocobalamin (Vitamin B-12) 2,500 mcg SL DAILY 04/24/21 06/22/21 [Vitamin B-12] Furosemide [Lasix] 40 mg PO BID 04/24/21 04/24/21 Insulin Glargine [Lantus Solostar] 10 unit SQ HS 04/24/21 06/22/21 Metoprolol Tartrate [Lopressor] 25 mg PO DAILY 04/24/21 06/22/21 Pantoprazole [Protonix] 40 mg PO DAILY 04/24/21 06/22/21 Potassium Chloride 20 meq PO DAILY 06/22/21 06/22/21 Rivastigmine [Exelon 9.5MG] 1 patch TD DAILY 06/22/21 06/22/21 Sulfamethox/Trimeth 800/160 1 each PO BID #14 tablet 06/22/21 [Bactrim Ds 800/160] diltiaZEM [Cardizem] 30 mg PO DAILY 06/22/21 06/22/21 - Allergies Allergies/Adverse Reactions: Allergies Allergy/AdvReac Type Severity Reaction Status Date / Time No Known Drug Allergies Allergy Verified 06/22/21 17:40 - Social History Does the pt smoke?: No Smoking Status: Never smoker Does the pt drink ETOH?: No Does the pt have substance abuse?: No - Immunizations Immunizations are current?: Yes - POLST POLST Status: DNR PD ED PE NORMAL - Vitals Vital signs reviewed: Yes - General General: Alert and oriented X 3, No acute distress - HEENT HEENT: PERRL, EOMI - Neck Neck: Supple, no meningeal sign, No bony TTP - Cardiac Cardiac: Other (Irregularly irregular without murmur) - Respiratory Respiratory: No respiratory distress, Clear bilaterally - Abdomen Abdomen: Soft, Other (Mild suprapubic TTP without G/R) - Back Back: No CVA TTP, No spinal TTP - Derm Derm: Normal color, Warm and dry - Extremities Extremities: Other (1+ bilateral pitting pedal edema) - Neuro Neuro: Alert and oriented X 3, No motor deficit, No sensory deficit, Normal spee ch Eye Opening: Spontaneous Motor: Obeys Commands Verbal: Oriented GCS Score: 15 Results - Vitals Vitals: Vital Signs - 24 hr 06/22/21 06/22/21 06/22/21 17:36 18:12 18:30 Temperature 37.6 C Heart Rate 89 91 100 Respiratory 18 19 18 Rate Blood Pressure 133/112 H 155/88 H 163/79 H O2 Saturation 96 98 96 06/22/21 06/22/21 06/22/21 19:00 19:30 20:00 Temperature 97.7 C H 36.4 C L Heart Rate 92 95 85 Respiratory 16 20 19 Rate Blood Pressure 152/107 H 138/88 H 158/100 H O2 Saturation 97 96 94 06/22/21 06/22/21 06/22/21 20:30 21:00 21:30 Temperature 36.4 C L Heart Rate 92 94 98 Respiratory 20 22 22 Rate Blood Pressure 156/93 H 162/126 H 161/97 H O2 Saturation 95 97 97 06/22/21 22:03 Temperature 36.5 C Heart Rate 95 Respiratory 21 Rate Blood Pressure 155/89 H O2 Saturation 98 Oxygen O2 Source Room air - EKG (time done) 1754 Rate: Rate (enter#) (99) Rhythm: Atrial fibrillation Intervals: RBBB Ischemia: Normal ST segments - Labs Labs: Laboratory Tests 06/22/21 06/22/21 06/22/21 18:02 18:02 18:02 WBC 15.6 H RBC 5.48 Hgb 16.5 Hct 50.2 MCV 91.6 MCH 30.1 MCHC 32.9 RDW 14.2 Plt Count 138 MPV 12.5 H Neut # (Auto) 12.5 H Lymph # (Auto) 1.4 L [place] # (Auto) 1.5 H Eos # (Auto) 0.0 Baso # (Auto) 0.1 Absolute Nucleated RBC 0.00 Nucleated RBC % 0.0 Sodium 137 Potassium 3.9 Chloride 101 Carbon Dioxide 25 Anion Gap 11.0 BUN 16 Creatinine 1.6 H Estimated GFR (MDRD) 42 L Glucose 122 H Lactic Acid 1.6 Calcium 9.7 Total Bilirubin 2.0 H AST 13 ALT 14 Alkaline Phosphatase 51 Total Protein 8.2 Albumin 4.7 Globulin 3.5 Albumin/Globulin Ratio 1.3 Urine Color Urine Clarity Urine pH Ur Specific [place] Urine Protein Urine Glucose (UA) Urine Ketones Urine Occult Blood Urine Nitrite Urine Bilirubin Urine Urobilinogen Ur Leukocyte Esterase Urine RBC Urine WBC Ur Squamous Epith Cells Urine Bacteria Urine Culture Comments Nasal Adenovirus (PCR) Nasal B. parapertussis DNA (PCR) Nasal Coronavir 229E PCR Nasal Coronavir HKU1 PCR Nasal Coronavir NL63 PCR Nasal Coronavir OC43 PCR Nasal Enterovir/Rhinovir PCR Nasal Influenza B PCR Nasal Influenza A PCR Nasal Parainfluen 1 PCR Nasal Parainfluen 2 PCR Nasal Parainfluen 3 PCR Nasal Parainfluen 4 PCR Nasal RSV (PCR) Nasal B.pertussis DNA PCR Nasal C.pneumoniae (PCR) Rj Human Metapneumo PCR Nasal M.pneumoniae (PCR) Nasal SARS-CoV-2 (PCR) 05/17/22 05/17/22 18:15 18:50 WBC RBC Hgb Hct MCV MCH MCHC RDW Plt Count MPV Neut # (Auto) Lymph # (Auto) [place] # (Auto) Eos # (Auto) Baso # (Auto) Absolute Nucleated RBC Nucleated RBC % Sodium Potassium Chloride Carbon Dioxide Anion Gap BUN Creatinine Estimated GFR (MDRD) Glucose Lactic Acid Calcium Total Bilirubin AST ALT Alkaline Phosphatase Total Protein Albumin Globulin Albumin/Globulin Ratio Urine Color YELLOW Urine Clarity HAZY Urine pH 6.5 Ur Specific [place] 1.015 Urine Protein 30 H Urine Glucose (UA) NEGATIVE Urine Ketones NEGATIVE Urine Occult Blood MODERATE H Urine Nitrite POSITIVE H Urine Bilirubin NEGATIVE Urine Urobilinogen 0.2 (NORMAL) Ur Leukocyte Esterase MODERATE H Urine RBC 6-10 H Urine WBC 11-25 H Ur Squamous Epith Cells NONE SEEN Urine Bacteria Few Urine Culture Comments INDICATED Nasal Adenovirus (PCR) NOT DETECTED Nasal B. parapertussis DNA (PCR) NOT DETECTED Nasal Coronavir 229E PCR NOT DETECTED Nasal Coronavir HKU1 PCR DETECTED A Nasal Coronavir NL63 PCR NOT DETECTED Nasal Coronavir OC43 PCR NOT DETECTED Nasal Enterovir/Rhinovir PCR NOT DETECTED Nasal Influenza B PCR NOT DETECTED Nasal Influenza A PCR NOT DETECTED Nasal Parainfluen 1 PCR NOT DETECTED Nasal Parainfluen 2 PCR NOT DETECTED Nasal Parainfluen 3 PCR NOT DETECTED Nasal Parainfluen 4 PCR NOT DETECTED Nasal RSV (PCR) NOT DETECTED Nasal B.pertussis DNA PCR NOT DETECTED Nasal C.pneumoniae (PCR) NOT DETECTED Rj Human Metapneumo PCR NOT DETECTED Nasal M.pneumoniae (PCR) NOT DETECTED Nasal SARS-CoV-2 (PCR) NOT DETECTED PD MEDICAL DECISION MAKING - ED course ED course: 80-year-old gentleman presents with generalized weakness. Exam is unremarkable except for being in A. fib which is not a new phenomenon. Found to have leukocytosis and pyuria. Given the leukocytosis that shall be treated. Feeling much better after meds here and passed road test. Patient had multiple questions mostly regarding medication noncompliance and he was encouraged to take his meds as prescribed Bactrim chosen as given prior cultures. Departure - Departure Disposition: 01 Home, Self Care Clinical Impression: Weakness UTI (urinary tract infection) Qualifiers: Urinary tract infection type: catheter-associated UTI Indwelling urinary catheter type: indwelling urethral catheter Encounter type: initial encounter Qualified Code(s): T83.511A - Infection and inflammatory reaction due to indwelling urethral catheter, initial encounter Condition: Good Record reviewed to determine appropriate education?: Yes Instructions: ED UTI Cystitis Male Prescriptions: Sulfamethox/Trimeth 800/160 [Bactrim Ds 800/160] 1 each PO BID #14 tablet Comments: [facility] Return for new or worsening symptoms. Drink plenty of fluids. I encourage you to take your medications as prescribed. 1 exception though, stop your potassium supplement while on the antibiotic as they interact. You can restart it after completion of the antibiotics. We will culture your urine, the results should be done in 48-72 hours. If an antibiotic change is necessary we will call you. Return if worse in the meantime, especially if you develop increasing flank pain, fevers, or cannot keep down the medication. Discharge Date/Time: 06/22/21 22:24
[2021-06-22 18:08] LABS: BASOPHILS # (AUTO) 0.1 10^3/uL (0.0-0.1); BASOPHILS % (AUTO) 0.4 %; EOSINOPHILS % (AUTO) 0.3 %; HCT - HEMATOCRIT 50.2 % (42.0-52.0); HGB - HEMOGLOBIN 16.5 g/dL (14.0-18.0); LYMPHOCYTES # (AUTO) 1.4 10^3/uL (1.5-3.5); LYMPHOCYTES % (AUTO) 9.1 %; MEAN CORPUSCULAR HEMOGLOBIN 30.1 pg (27.0-31.0); MEAN CORPUSCULAR HGB CONC 32.9 g/dL (32.0-36.0); MEAN CORPUSCULAR VOLUME 91.6 fL (80.0-94.0); MEAN PLATELET VOLUME 12.5 fL (7.4-11.4); MONOCYTES # (AUTO) 1.5 10^3/uL (0.0-1.0); MONOCYTES % (AUTO) 9.4 %; NEUTROPHILS # (AUTO) 12.5 10^3/uL (1.5-6.6); NEUTROPHILS % (AUTO) 80.4 %; PLT - PLATELET COUNT 138 10^3/uL (130-450); RED BLOOD COUNT 5.48 10^6/uL (4.70-6.10); RED CELL DISTRIBUTION WIDTH 14.2 % (12.0-15.0); WHITE BLOOD COUNT 15.6 x10^3/uL (4.8-10.8)
[2021-06-22 18:21] LABS: ALBUMIN 4.7 g/dL (3.2-5.5); ALBUMIN/GLOBULIN RATIO 1.3 (1.0-2.2); CALCIUM 9.7 mg/dL (8.5-10.3); CREATININE 1.6 mg/dL (0.6-1.2); POTASSIUM 3.9 mmol/L (3.5-5.0); TOTAL PROTEIN 8.2 g/dL (6.7-8.2)
--- NOTE | 2021-06-22 19:01 | XRAY Report ---
PROCEDURE: Chest 1 View X-Ray INDICATIONS: Weakness and leukocytosis TECHNIQUE: One view of the chest was acquired. COMPARISON: Chest x-ray 09/05/2020 FINDINGS: Surgical changes and devices: None. Lungs and pleura: No pleural effusions or pneumothorax. Lungs are clear. Mediastinum: Mediastinal contours appear normal. Heart size is enlarged. Bones and chest wall: No suspicious bony lesions. Overlying soft tissues appear unremarkable. IMPRESSION: No acute pulmonary process. Reviewed by: Zhane Garnica MD on 06/22/2021 7:00 PM PDT Approved by: Zhane Garnica MD on 06/22/2021 7:00 PM PDT Station ID: [id number]
[2021-06-22 19:03] LABS: BILIRUBIN,URINE NEGATIVE (NEGATIVE); GLUCOSE, URINE (UA) NEGATIVE (NEGATIVE); KETONES,URINE (UA) NEGATIVE (NEGATIVE); LEUKOCYTE ESTERASE, URINE MODERATE (NEGATIVE); NITRITE,URINE POSITIVE (NEGATIVE); OCCULT BLOOD,URINE MODERATE (NEGATIVE); PH,URINE 6.5 PH (5.0-7.5); PROTEIN,URINE 30 mg/dL (NEGATIVE); UROBILINOGEN,URINE 0.2 (NORMAL) E.U./dL (NORMAL)
[2021-06-22 19:05] LABS: CLARITY,URINE HAZY (CLEAR)
[2021-06-22 19:19] LABS: BACTERIA,URINE Few /HPF (None Seen); SQUAMOUS EPITHELIAL CELL,UR NONE SEEN (<= Few)
[2021-06-22 19:35] LABS: B. PARAPERTUSSIS- RESP PCR PAN NOT DETECTED; B. PERTUSSIS- RESP PCR PANEL NOT DETECTED; C. PNEUMONIAE- RESP PCR PANEL NOT DETECTED; CORONAVIRUS 229E-RESP PCR NOT DETECTED; CORONAVIRUS HKU1-RESP PCR DETECTED; CORONAVIRUS NL63-RESP PCR NOT DETECTED; CORONAVIRUS OC43-RESP PCR NOT DETECTED; HUMAN METAPNEUMOVIRUS NOT DETECTED; INFLUENZA A- RESP PCR PANEL NOT DETECTED; INFLUENZA B - RESP PCR PANEL NOT DETECTED; M. PNEUMONIAE- RESP PCR PANEL NOT DETECTED; PARAINFLUENZA VIRUS 1 NOT DETECTED; PARAINFLUENZA VIRUS 2 NOT DETECTED; PARAINFLUENZA VIRUS 3 NOT DETECTED; PARAINFLUENZA VIRUS 4 NOT DETECTED; RHINOVIRUS/ENTEROVIRUS NOT DETECTED; RSV- RESP PCR PANEL NOT DETECTED; SARS-CoV-2 -RESP PCR PANEL NOT DETECTED
[2021-06-22] MEDS ORDERED: cefTRIAXone 1 GM in SODIUM CHLORIDE 0.9% MINIBAG 100 ML IV STA (20:36)
[2021-06-22] MEDS ORDERED: cefTRIAXone 1 GM VIAL ONE (20:50)
[2021-06-22 22:04] VITALS: BP 155/89
== END 2021-06-22 22:24 | disposition home or self-care (01) ==
LOC: EDUNIT# → ED 17:28
DX: U07.1 COVID-19 (principal); T83.511A Infection and inflammatory reaction due to indwelling urethral catheter, initial encounter; I48.91 Unspecified atrial fibrillation; I10 Essential (primary) hypertension; E11.9 Type 2 diabetes mellitus without complications; Z79.4 Long term (current) use of insulin; Z79.01 Long term (current) use of anticoagulants
CPT/HCPCS: 36415; 80053; 81001; 83605; 85025; 87040; 87077; 87086; 87181; 87633; 93005; 96365; 99283

== ENCOUNTER 2021-10-01 08:00 | Outpatient (CLI) | payer MEDICARE, OTHER ==
--- NOTE | 2021-10-01 16:21 | XRAY Report ---
PROCEDURE: Ribs w/PA Chest RT INDICATIONS: RIGHT RIB PAIN TECHNIQUE: 2 views of the right ribs were acquired, along with a single view chest. COMPARISON: None FINDINGS: Surgical changes and devices: None. Bones and chest wall: No fractures or dislocations. No suspicious bony lesions. Overlying soft tis sues appear unremarkable. Increased interstitial markings are noted in the lungs which appear chroni c. Lungs and pleura: No pleural effusions or pneumothorax. Lungs appear clear. Mediastinum: Mediastinal contours appear normal. Heart size is normal. IMPRESSION: 1. No rib fracture. 2. No acute cardiopulmonary abnormality. Reviewed by: Alcides Solomon on 10/01/2021 4:20 PM PDT Approved by: Alcides Solomon on 10/01/2021 4:20 PM PDT Station ID: [id number]
== END 2021-10-01 23:59 | disposition home or self-care (01) ==
LOC: DI.N 08:00
PROVIDERS: ATTEND Registered Nurse
DX: R07.81 Pleurodynia (principal)

== ENCOUNTER 2022-11-12 14:45 | Emergency (ER) | payer MEDICARE, OTHER ==
--- NOTE | 2022-11-12 15:51 | ED Physician Documentation ---
PD HPI UPPER EXT INJURY - Stated complaint Stated Complaint: LFT ELBOW PX/SWELLING - Chief complaint Chief Complaint: Ext Problem - History obtained from History obtained from: Patient - History of Present Illness Location: Left, Elbow Type of injury: Other (redness and swelling) Where injury occurred: Other (went to [facility] yesterday) Timing - onset: Yesterday Timing - duration: Days (1) Timing - details: Gradual onset, Still present Improved by: Rest Worsened by: Moving, Palpating Associated symptoms: Swelling, Discolored. No: Weakness, Numbness, Tingling Contributing factors: Anticoagulated (started yesterday after symptoms started.) Similar symptoms before: Has not had sx before Recently seen: Clinic (saw the parimutuel clerk and was started on blood thinner for afib.) - Additonal information Additional information: 82-year-old Alf Tejada has a history of atrial fibrillation and he has recently started on some Eliquis. Yesterday he was at [facility] and he was resting his arms against the railing of the cart as he was walking through the store. He noticed he had some pain to the left elbow and some redness. He noticed symptoms prior to starting his Eliquis. Today he has increased swelling and tenderness but is able to move the arm through ROM without much trouble. Review of Systems Constitutional: denies: Fever, Chills, Myalgias Ears: denies: Ear pain Nose: denies: Congestion Throat: denies: Sore throat Respiratory: denies: Cough GI: denies: Vomiting, Diarrhea : reports: Incontinent. 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 - Present Medications Home Medications: Ambulatory Orders Medication Instructions Recorded Confirmed Rivaroxaban [Xarelto] 20 mg PO DAILY 09/03/20 05/17/22 cephALEXin [Keflex] 500 mg PO Q6H #28 cap 11/12/22 - Allergies Allergies/Adverse Reactions: Allergies Allergy/AdvReac Type Severity Reaction Status Date / Time No Known Drug Allergies Allergy Verified 11/12/22 14:49 - Social History Does the pt smoke?: No Smoking Status: Never smoker Does the pt drink ETOH?: No Does the pt have substance abuse?: No - Immunizations Immunizations are current?: Yes - POLST POLST Status: DNR PD ED PE NORMAL - Vitals Vital signs reviewed: Yes (hypertensive ) - General General: Alert and oriented X 3, No acute distress, Well developed/nourished - HEENT HEENT: Atraumatic, PERRL, EOMI - Respiratory Respiratory: No respiratory distress - Derm Derm: Normal color, Warm and dry, No rash - Extremities Extremities: Other (There is swelling and erythema to the skin of the left elbow. There is not fluctuance or tightness to the swellign to suggest abscess. no lymphangitic streaking. 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, No motor deficit, No sensory deficit, Normal speech Eye Opening: Spontaneous Motor: Obeys Commands Verbal: Oriented GCS Score: 15 - Psych Psych: Normal mood, Normal affect Results - Vitals Vitals: Vital Signs - 24 hr 11/12/22 14:50 Temperature 37.4 C Heart Rate 69 Respiratory 18 Rate Blood Pressure 139/104 H O2 Saturation 95 Oxygen O2 Source Room air PD Medical Decision Making - ED course Complexity details: considered differential, d/w patient ED course: 82-year-old male who was leaning on his elbows yesterday and has noted today and yesterday swelling and erythema to the skin over the elbow. He has retained range of motion I do not see a fluid collection that I could relieve to improve his symptoms. We will treat him for cellulitis and expect resolution. I have asked the patient to return should he develop the swelling with fluctuance to the elbow. Departure - Departure Disposition: 01 Home, Self Care Clinical Impression: Cellulitis of left elbow Condition: Stable Instructions: ED Infec Skin Cellulitis Follow-Up: LILIANE CORTÉS PA-C [Primary Care Provider] - Prescriptions: cephALEXin [Keflex] 500 mg PO Q6H #28 cap Comments: Alf today it looks like you have some inflammation to the skin over the bursa of your elbow. This can sometimes result in the bursa itself becoming swollen or a funny shape to the elbow with a collection of fluid will form. If this happens return here for removal of the fluid. Otherwise we are expecting that you will have slow and steady improvement in the redness and swelling over the next week with the use of antibiotic. I have E scribed some Keflex to the [facility] in [place].
[2022-11-12 16:20] VITALS: BP 122/67; O2SAT 96
== END 2022-11-12 16:42 | disposition home or self-care (01) ==
LOC: ED 14:45
DX: L03.114 Cellulitis of left upper limb (principal); Z66 Do not resuscitate
CPT/HCPCS: 99282; 99283

== ENCOUNTER 2022-11-16 13:36 | Emergency (ER) | payer MEDICARE, OTHER ==
[2022-11-16 13:55] VITALS: BP 118/70; O2SAT 95
[2022-11-16] MEDS ORDERED: predniSONE 20 MG TABLET PO STA (14:06)
--- NOTE | 2022-11-16 14:10 | ED Physician Documentation ---
History of Present Illness - Stated complaint Stated Complaint: ARM PX - Chief complaint Chief Complaint: Ext Problem - History obtained from History obtained from: Patient - History of Present Illness Timing: How many weeks ago (1) Pain level max: 5 Pain level now: 5 - Additonal information Additional information: 82-year-old male presents to the emergency department with redness and swelling to the left elbow. Seen here last week and placed on Keflex. States not improving. No fevers. No chills. No trauma. The patient is on Eliquis. No numbness or tingling. No drainage. Started after leaning on his elbow. Review of Systems Constitutional: denies: Fever, Chills PD PAST MEDICAL HISTORY - Past Medical History Cardiovascular: Hypertension, Atrial fibrillation Respiratory: None Neuro: Dementia, Other Endocrine/Autoimmune: Type 2 diabetes Musculoskeletal: Chronic back pain - Past Surgical History Past Surgical History: Yes Neuro: [employer] shunt - Present Medications Home Medications: Ambulatory Orders Medication Instructions Recorded Confirmed cephALEXin [Keflex] 500 mg PO Q6H #28 cap 11/12/22 Apixaban [Eliquis] 5 mg PO BID 11/16/22 cephALEXin [Keflex] 500 mg PO Q6H #20 cap 11/16/22 predniSONE [Deltasone] 40 mg PO DAILY #10 tablet 11/16/22 - Allergies Allergies/Adverse Reactions: Allergies Allergy/AdvReac Type Severity Reaction Status Date / Time No Known Drug Allergies Allergy Verified 11/16/22 13:51 - Social History Does the pt smoke?: No Smoking Status: Never smoker Does the pt drink ETOH?: No Does the pt have substance abuse?: No - Immunizations Immunizations are current?: Yes - POLST POLST Status: DNR PD ED PE NORMAL - Vitals Vital signs reviewed: Yes - General General: Alert and oriented X 3, No acute distress - HEENT HEENT: Moist mucous membranes - Neck Neck: Supple, no meningeal sign - Cardiac Cardiac: RRR - Respiratory Respiratory: No respiratory distress, Clear bilaterally - Extremities Extremities: Other (Erythema and swelling to the left olecranon bursa. Mild fluctuance. Full range of motion of the arm and elbow without pain. Neurovascular intact.) - Neuro Neuro: Alert and oriented X 3 Results - Vitals Vitals: Vital Signs - 24 hr 11/16/22 13:46 Temperature 37.0 C Heart Rate 71 Respiratory 17 Rate Blood Pressure 118/70 O2 Saturation 95 Oxygen O2 Source Room air Procedures - Abscess I&D (location) Left olecranon bursa Preparation: Chlorhexadine, Lidocaine 1%, With epi Incision: Needle aspiration Other: Pt tolerated well, Dressing applied, Antibiotic prescribed PD Medical Decision Making - ED course Complexity details: considered differential, d/w patient ED course: Needle aspiration performed and removed approximately 8 cc of fluid from the olecranon bursa. Appears consistent with inflammatory reaction. We will place on steroids at home and continue the Keflex. No evidence of hematoma. No evidence of systemic infection. Patient counseled regarding signs and symptoms for which I believe and urgent re-evaluation would be necessary. Patient with good understanding of and agreement to plan and is comfortable going home at this time This document was made in part using voice recognition software. While efforts are made to proofread this document, sound alike and grammatical errors may occur. Departure - Departure Disposition: 01 Home, Self Care Clinical Impression: Olecranon bursitis of left elbow Condition: Good Instructions: ED Bursitis Elbow Olecranon Follow-Up: LILIANE CORTÉS PA-C [Primary Care Provider] - Prescriptions: predniSONE [Deltasone] 40 mg PO DAILY #10 tablet cephALEXin [Keflex] 500 mg PO Q6H #20 cap Comments: Your prescriptions were sent to the [facility]. Please take all antibiotics until gone. The steroid should help to resolve the swelling. This appears to be consistent with an olecranon bursitis today. Please return if you are not improving within the next 48 to 72 hours. Forms: PCP List Discharge Date/Time: 11/16/22 14:19
== END 2022-11-16 14:19 | disposition home or self-care (01) ==
LOC: ED 13:36
DX: M70.22 Olecranon bursitis, left elbow (principal); Y93.89 Activity, other specified; Z66 Do not resuscitate
CPT/HCPCS: 20605; 99283

== ENCOUNTER 2023-01-12 15:32 | Outpatient (CLI) | payer MEDICARE, OTHER | END 2023-01-12 15:33 | disposition short-term general hospital (02) | LOC: EMS 15:32 | DX: I21.3 ST elevation (STEMI) myocardial infarction of unspecified site (principal) | CPT/HCPCS: A0425; A0427 ==